=== PATIENT | female | born 1965 | race African-American/Black ===

== ENCOUNTER 2016-11-22 12:18 | Emergency (ER) | payer MEDICARE ==
[2016-11-22 13:16] LABS: APPEARANCE CLEAR (CLEAR); BILIRUBIN NEGATIVE (NEGATIVE); COLOR YELLOW (YELLOW); GLUCOSE NEGATIVE (NEGATIVE); KETONE NEGATIVE (NEGATIVE); LEUKOCYTE ESTERASE TRACE (NEGATIVE); NITRITE NEGATIVE (NEGATIVE); PROTEIN NEGATIVE (NEGATIVE); UROBILINOGEN NORMAL (NORMAL)
[2016-11-22 13:17] LABS: BACTERIA FEW /hpf (NONE SEEN); EPITHELIAL CELLS 0-5 /hpf (0-5); RED CELLS - URINE NONE SEEN /hpf (0-5); WHITE CELLS - URINE 0-5 /hpf (0-5); YEAST >1+ /hpf (NONE SEEN)
== END 2016-11-22 15:52 | disposition home or self-care (01) ==
LOC: D.ER 12:18
PROVIDERS: Emergency Medicine Emergency Medical Services
DX: Z20.2 Contact with and (suspected) exposure to infections with a predominantly sexual mode of transmission (principal); R10.2 Pelvic and perineal pain; I10 Essential (primary) hypertension; E87.6 Hypokalemia

== ENCOUNTER 2016-12-17 13:35 | Emergency (ER) | payer MEDICAID ==
[2016-12-17 17:56] LABS: APPEARANCE CLEAR (CLEAR); BILIRUBIN NEGATIVE (NEGATIVE); COLOR YELLOW (YELLOW); GLUCOSE NEGATIVE (NEGATIVE); KETONE NEGATIVE (NEGATIVE); LEUKOCYTE ESTERASE TRACE (NEGATIVE); NITRITE NEGATIVE (NEGATIVE); PROTEIN NEGATIVE (NEGATIVE); SPECIFIC GRAVITY 1.005 (1.005-1.020); UROBILINOGEN NORMAL (NORMAL)
[2016-12-17 17:57] LABS: BACTERIA FEW /hpf (NONE SEEN); EPITHELIAL CELLS 0-5 /hpf (0-5); RED CELLS - URINE 0-5 /hpf (0-5); WHITE CELLS - URINE 0-5 /hpf (0-5); YEAST <1+ /hpf (NONE SEEN)
== END 2016-12-17 18:15 | disposition home or self-care (01) ==
LOC: D.ER 13:35
PROVIDERS: Physician Assistant
DX: N76.0 Acute vaginitis (principal); N95.2 Postmenopausal atrophic vaginitis; Z72.51 High risk heterosexual behavior; J45.909 Unspecified asthma, uncomplicated; I10 Essential (primary) hypertension; E87.6 Hypokalemia

== ENCOUNTER 2016-12-30 14:36 | Emergency (ER) | payer SELFPAY ==
[2016-12-30 16:13] LABS: APPEARANCE CLEAR (CLEAR); BILIRUBIN NEGATIVE (NEGATIVE); COLOR YELLOW (YELLOW); GLUCOSE NEGATIVE (NEGATIVE); KETONE NEGATIVE (NEGATIVE); LEUKOCYTE ESTERASE TRACE (NEGATIVE); NITRITE NEGATIVE (NEGATIVE); PROTEIN NEGATIVE (NEGATIVE); UROBILINOGEN NORMAL (NORMAL)
[2016-12-30 16:18] LABS: BACTERIA FEW /hpf (NONE SEEN); EPITHELIAL CELLS 0-5 /hpf (0-5); RED CELLS - URINE NONE SEEN /hpf (0-5); WHITE CELLS - URINE 0-5 /hpf (0-5)
[2016-12-30 16:19] LABS: YEAST >1+ /hpf (NONE SEEN)
[2016-12-30 16:35] LABS: BASOPHILS 0.2 % (0.0-2.0); EOSINOPHILS 0.2 % (0-7); HEMATOCRIT 38.4 % (36.0-48.0); HEMOGLOBIN 12.9 g/dL (12-16); IMMATURE GRANULOCYTES 0.2 % (0-5); LYMPHOCYTES 29.6 % (15-50); MCH 30.3 pg (26.0-34.0); MCHC 33.6 g/dL (31.0-37.0); MCV 90.1 fL (80.0-100.0); MEAN PLATELET VOLUME 8.2 fL (7.4-10.4); MONOCYTES 8.5 % (2-11); NEUTROPHILS 61.3 % (40-80); PLATELET COUNT 248 10x3/uL (130-400); RBC 4.26 10x6/uL (4.00-5.40); RDW 12.5 % (11.5-14.5); WBC 4.1 10x3/uL (4.8-10.8)
[2017-01-02 22:11] LABS: CHLAMYDIA TRACHOMATIS, NAA Negative (Negative)
== END 2016-12-30 17:10 | disposition home or self-care (01) ==
LOC: D.ER 14:36
PROVIDERS: Physician Assistant Medical
DX: B37.9 Candidiasis, unspecified (principal); J45.909 Unspecified asthma, uncomplicated; I10 Essential (primary) hypertension; E87.6 Hypokalemia

== ENCOUNTER 2017-01-18 13:33 | Emergency (ER) | payer SELFPAY ==
[2017-01-18 14:19] LABS: BASOPHILS 0.4 % (0.0-2.0); EOSINOPHILS 0.6 % (0-7); HEMATOCRIT 40.9 % (36.0-48.0); HEMOGLOBIN 13.3 g/dL (12-16); IMMATURE GRANULOCYTES 0.2 % (0-5); LYMPHOCYTES 38.9 % (15-50); MCHC 32.5 g/dL (31.0-37.0); MCV 92.1 fL (80.0-100.0); MEAN PLATELET VOLUME 8.4 fL (7.4-10.4); NEUTROPHILS 49.9 % (40-80); RBC 4.44 10x6/uL (4.00-5.40); RDW 13.1 % (11.5-14.5); WBC 4.9 10x3/uL (4.8-10.8)
[2017-01-18 14:20] LABS: PLATELET COUNT 318 10x3/uL (130-400)
[2017-01-18 14:25] LABS: APPEARANCE CLEAR (CLEAR); BILIRUBIN NEGATIVE (NEGATIVE); COLOR YELLOW (YELLOW); GLUCOSE NEGATIVE (NEGATIVE); KETONE NEGATIVE (NEGATIVE); LEUKOCYTE ESTERASE NEGATIVE (NEGATIVE); NITRITE NEGATIVE (NEGATIVE); PROTEIN NEGATIVE (NEGATIVE); SPECIFIC GRAVITY 1.005 (1.005-1.020); UROBILINOGEN NORMAL (NORMAL)
[2017-01-18 14:32] LABS: ALBUMIN 3.9 g/dL (3.4-5.0); ALKALINE PHOSPHATASE 40 U/L (46-116); ALT (SGPT) 24 U/L (10-68); BILIRUBIN - TOTAL 0.26 mg/dL (0.2-1.3); CALC OSMOLALITY 284 mosm/kg (275-300); CALCIUM 8.6 mg/dL (8.5-10.1); CARBON DIOXIDE 30.9 mmol/L (21.0-32.0); CHLORIDE - SERUM 106 mmol/L (98-107); CREATININE - SERUM 0.8 mg/dL (0.6-1.3); GLUCOSE 94 mg/dL (74-106); POTASSIUM - SERUM 3.7 mmol/L (3.5-5.1); PROTEIN - SERUM 6.7 g/dL (6.4-8.2); SODIUM 144 mmol/L (136-145); UREA NITROGEN 7 mg/dL (7-18); eGFR NON AFRICAN AMERICAN 80 mL/min (90-120)
== END 2017-01-18 18:25 | disposition home or self-care (01) ==
LOC: D.ER 13:33
PROVIDERS: Emergency Medicine
DX: N76.0 Acute vaginitis (principal); R10.2 Pelvic and perineal pain; Z72.51 High risk heterosexual behavior; I10 Essential (primary) hypertension; E87.6 Hypokalemia

== ENCOUNTER 2017-01-29 13:56 | Emergency (ER) | payer SELFPAY ==
[2017-01-29 16:17] LABS: APPEARANCE CLEAR (CLEAR); BILIRUBIN NEGATIVE (NEGATIVE); COLOR YELLOW (YELLOW); GLUCOSE NEGATIVE (NEGATIVE); KETONE NEGATIVE (NEGATIVE); LEUKOCYTE ESTERASE NEGATIVE (NEGATIVE); NITRITE NEGATIVE (NEGATIVE); PROTEIN NEGATIVE (NEGATIVE); UROBILINOGEN NORMAL (NORMAL)
== END 2017-01-29 16:40 | disposition home or self-care (01) ==
LOC: D.ER 13:56
PROVIDERS: Nurse Practitioner Family
DX: N34.2 Other urethritis (principal); N89.8 Other specified noninflammatory disorders of vagina; J45.909 Unspecified asthma, uncomplicated; I10 Essential (primary) hypertension; E87.6 Hypokalemia

== ENCOUNTER 2017-02-08 20:35 | Emergency (ER) | payer MEDICARE | END 2017-02-09 00:18 | disposition home or self-care (01) | LOC: D.ER 20:35 | DX: N76.0 Acute vaginitis (principal); J45.909 Unspecified asthma, uncomplicated; I10 Essential (primary) hypertension; E87.6 Hypokalemia ==

== ENCOUNTER 2017-02-20 12:45 | Emergency (ER) | payer MEDICARE | END 2017-02-20 16:07 | disposition home or self-care (01) | LOC: D.ER 12:45 | DX: M54.5 Low back pain (principal); F17.200 Nicotine dependence, unspecified, uncomplicated ==

== ENCOUNTER 2017-03-02 12:13 | Emergency (ER) | payer MEDICARE | END 2017-03-02 15:03 | disposition home or self-care (01) | LOC: D.ER 12:13 | DX: J02.9 Acute pharyngitis, unspecified (principal); Z20.2 Contact with and (suspected) exposure to infections with a predominantly sexual mode of transmission; N76.0 Acute vaginitis; J45.909 Unspecified asthma, uncomplicated; I10 Essential (primary) hypertension; E87.6 Hypokalemia ==

== ENCOUNTER 2017-03-12 20:09 | Emergency (ER) | payer MEDICARE ==
[2017-03-12 21:10] LABS: BASOPHILS 0.3 % (0-2); EOSINOPHILS 0.9 % (0-7); HEMATOCRIT 43.7 % (36.0-48.0); HEMOGLOBIN 14.4 g/dL (12-16); IMMATURE GRANULOCYTES 0.2 % (0-5); LYMPHOCYTES 46.1 % (15-50); MCH 30.1 pg (26.0-34.0); MCV 91.2 fL (80.0-100.0); MEAN PLATELET VOLUME 8.3 fL (7.4-10.4); MONOCYTES 10.4 % (2-11); NEUTROPHILS 42.1 % (40-80); PLATELET COUNT 275 10x3/uL (130-400); RBC 4.79 10x6/uL (4.00-5.40); RDW 12.6 % (11.5-14.5); WBC 5.8 10x3/uL (4.8-10.8)
[2017-03-12 21:31] LABS: ALKALINE PHOSPHATASE 46 U/L (46-116); ALT (SGPT) 25 U/L (10-68); BILIRUBIN - TOTAL 0.33 mg/dL (0.2-1.3); CALC OSMOLALITY 277 mosm/kg (275-300); CALCIUM 8.7 mg/dL (8.5-10.1); CARBON DIOXIDE 30.8 mmol/L (21.0-32.0); CHLORIDE - SERUM 103 mmol/L (98-107); CREATININE - SERUM 0.8 mg/dL (0.6-1.3); GLUCOSE 92 mg/dL (74-106); POTASSIUM - SERUM 4.1 mmol/L (3.5-5.1); PROTEIN - SERUM 6.7 g/dL (6.4-8.2); SODIUM 140 mmol/L (136-145); UREA NITROGEN 9 mg/dL (7-18); eGFR NON AFRICAN AMERICAN 80 mL/min (90-120)
[2017-03-12 21:33] LABS: APPEARANCE CLEAR (CLEAR); BILIRUBIN NEGATIVE (NEGATIVE); COLOR YELLOW (YELLOW); GLUCOSE NEGATIVE (NEGATIVE); KETONE NEGATIVE (NEGATIVE); LEUKOCYTE ESTERASE NEGATIVE (NEGATIVE); NITRITE NEGATIVE (NEGATIVE); PROTEIN NEGATIVE (NEGATIVE); SPECIFIC GRAVITY 1.015 (1.005-1.020); UROBILINOGEN NORMAL (NORMAL)
[2017-03-16 03:09] LABS: CHLAMYDIA TRACHOMATIS, NAA Negative (Negative)
== END 2017-03-13 00:23 | disposition home or self-care (01) ==
LOC: D.ER 20:09
PROVIDERS: Emergency Medicine Emergency Medical Services
DX: R10.2 Pelvic and perineal pain (principal); J45.909 Unspecified asthma, uncomplicated; I10 Essential (primary) hypertension; E87.6 Hypokalemia

== ENCOUNTER 2017-03-17 18:43 | Emergency (ER) | payer MEDICARE ==
[2017-03-17 19:24] LABS: APPEARANCE CLEAR (CLEAR); BILIRUBIN NEGATIVE (NEGATIVE); COLOR YELLOW (YELLOW); GLUCOSE NEGATIVE (NEGATIVE); KETONE NEGATIVE (NEGATIVE); LEUKOCYTE ESTERASE TRACE (NEGATIVE); NITRITE NEGATIVE (NEGATIVE); PROTEIN NEGATIVE (NEGATIVE); SPECIFIC GRAVITY 1.015 (1.005-1.020); UROBILINOGEN NORMAL (NORMAL)
[2017-03-17 19:25] LABS: BACTERIA FEW /hpf (NONE SEEN); EPITHELIAL CELLS 0-5 /hpf (0-5); MUCUS <1+ /lpf (NONE SEEN); RED CELLS - URINE NONE SEEN /hpf (0-5); WHITE CELLS - URINE 0-5 /hpf (0-5)
== END 2017-03-17 20:56 | disposition home or self-care (01) ==
LOC: D.ER 18:43
PROVIDERS: Emergency Medicine
DX: R42 Dizziness and giddiness (principal); J45.909 Unspecified asthma, uncomplicated; I10 Essential (primary) hypertension; E87.6 Hypokalemia

== ENCOUNTER 2018-01-27 13:45 | Emergency (ER) | payer MEDICARE | END 2018-01-27 15:12 | disposition home or self-care (01) | LOC: D.ER 13:45 | DX: J02.9 Acute pharyngitis, unspecified (principal); J06.9 Acute upper respiratory infection, unspecified ==

== ENCOUNTER 2018-04-07 10:23 | Emergency (ER) | payer MEDICARE ==
[2018-04-07 10:47] LABS: BASOPHILS 0.5 % (0-2); HEMATOCRIT 40.2 % (36.0-48.0); HEMOGLOBIN 13.7 g/dL (12-16); LYMPHOCYTES 41.5 % (15-50); MCH 30.9 pg (26.0-34.0); MCHC 34.1 g/dL (31.0-37.0); MCV 90.7 fL (80.0-100.0); MONOCYTES 11.1 % (2-11); NEUTROPHILS 45.9 % (40-80); PLATELET COUNT 269 10x3/uL (130-400); RBC 4.43 10x6/uL (4.00-5.40); RDW 12.5 % (11.5-14.5); WBC 3.9 10x3/uL (4.8-10.8)
[2018-04-07 10:59] LABS: APPEARANCE HAZY (CLEAR); BILIRUBIN NEGATIVE (NEGATIVE); COLOR YELLOW (YELLOW); GLUCOSE NEGATIVE (NEGATIVE); KETONE NEGATIVE (NEGATIVE); NITRITE NEGATIVE (NEGATIVE); PROTEIN NEGATIVE (NEGATIVE); SPECIFIC GRAVITY 1.015 (1.005-1.020); UROBILINOGEN NORMAL (NORMAL)
[2018-04-07 11:00] LABS: EPITHELIAL CELLS 0-5 /hpf (0-5); RED CELLS - URINE NONE SEEN /hpf (0-5); WHITE CELLS - URINE 0-5 /hpf (0-5)
[2018-04-07 11:01] LABS: BACTERIA MODERATE /hpf (NONE SEEN); YEAST <1+ /hpf (NONE SEEN)
[2018-04-07 11:09] LABS: ALBUMIN 3.8 g/dL (3.4-5.0); ALKALINE PHOSPHATASE 38 U/L (46-116); ALT (SGPT) 21 U/L (10-68); AMYLASE - SERUM 83 U/L (25-115); BILIRUBIN - TOTAL 0.39 mg/dL (0.2-1.3); CALC OSMOLALITY 276 mosm/kg (275-300); CALCIUM 8.6 mg/dL (8.5-10.1); CARBON DIOXIDE 27.7 mmol/L (21.0-32.0); CHLORIDE - SERUM 104 mmol/L (98-107); CREATININE - SERUM 0.8 mg/dL (0.6-1.3); GLUCOSE 99 mg/dL (74-106); LIPASE 260 U/L (73-393); POTASSIUM - SERUM 3.7 mmol/L (3.5-5.1); PROTEIN - SERUM 6.7 g/dL (6.4-8.2); SODIUM 140 mmol/L (136-145); UREA NITROGEN 7 mg/dL (7-18); eGFR NON AFRICAN AMERICAN 80 mL/min (90-120)
[2018-04-10 07:32] LABS: CHLAMYDIA TRACHOMATIS, NAA Negative (Negative)
== END 2018-04-07 12:17 | disposition home or self-care (01) ==
LOC: D.ER 10:23
PROVIDERS: Family Medicine
DX: A64 Unspecified sexually transmitted disease (principal); R10.2 Pelvic and perineal pain; F17.200 Nicotine dependence, unspecified, uncomplicated

== ENCOUNTER 2018-06-24 19:41 | Emergency (ER) | payer MEDICARE ==
[~2018-06-24] VITALS: Ht 167.6 cm; Wt 69.5 kg
[2018-06-24 20:03] VITALS: Ht 167.6 cm; Wt 69.5 kg
[2018-06-24] MEDS ORDERED: PRINIVIL10 MG PO (20:04)
[2018-06-24 20:55] LABS: APPEARANCE CLEAR (CLEAR); BILIRUBIN NEGATIVE (NEGATIVE); COLOR YELLOW (YELLOW); GLUCOSE NEGATIVE (NEGATIVE); KETONE NEGATIVE (NEGATIVE); NITRITE NEGATIVE (NEGATIVE); PROTEIN NEGATIVE (NEGATIVE); SPECIFIC GRAVITY 1.025 (1.005-1.020); UROBILINOGEN NORMAL (NORMAL)
[2018-06-24] MEDS ORDERED: TORADOL10 MG PO (21:23)
[2018-06-24 21:27] VITALS: BP 117/74
== END 2018-06-24 21:28 | disposition home or self-care (01) ==
LOC: D.ER 19:41
PROVIDERS: Family Medicine
DX: M54.5 Low back pain (principal); M25.552 Pain in left hip; R30.0 Dysuria

== ENCOUNTER 2018-07-20 10:26 | Emergency (ER) | payer MEDICARE ==
[~2018-07-20] VITALS: Ht 167.6 cm; Wt 68.2 kg
[~2018-07-20 10:26] MED LIST: PRINIVIL10 MG PO; TORADOL10 MG PO
[2018-07-20 10:41] VITALS: Ht 167.6 cm; Wt 68.2 kg
[2018-07-20 12:50] LABS: APPEARANCE CLEAR (CLEAR); COLOR YELLOW (YELLOW); GLUCOSE NEGATIVE (NEGATIVE); KETONE NEGATIVE (NEGATIVE); NITRITE NEGATIVE (NEGATIVE); PROTEIN NEGATIVE (NEGATIVE); SPECIFIC GRAVITY 1.015 (1.005-1.020); UROBILINOGEN NORMAL (NORMAL)
[2018-07-20 12:51] LABS: BILIRUBIN NEGATIVE (NEGATIVE)
[2018-07-20 12:54] VITALS: BP 146/73
[2018-07-20 12:54] LABS: BACTERIA FEW /hpf (NONE SEEN); EPITHELIAL CELLS 0-5 /hpf (0-5); RED CELLS - URINE 0-5 /hpf (0-5); WHITE CELLS - URINE 0-5 /hpf (0-5)
[2018-07-25 22:15] LABS: CHLAMYDIA TRACHOMATIS, NAA Negative (Negative)
== END 2018-07-20 12:55 | disposition home or self-care (01) ==
LOC: D.ER 10:26
PROVIDERS: Family Medicine
DX: N89.8 Other specified noninflammatory disorders of vagina (principal); Z72.51 High risk heterosexual behavior; R51 Headache; J02.9 Acute pharyngitis, unspecified; I10 Essential (primary) hypertension

== ENCOUNTER 2019-01-11 15:18 | Emergency (ER) | payer MEDICARE ==
[~2019-01-11] VITALS: Ht 167.6 cm; Wt 71.8 kg
[2019-01-11 15:29] VITALS: Ht 167.6 cm; Wt 71.8 kg
[2019-01-11 16:41] LABS: BASOPHILS 0.6 % (0-2); HEMATOCRIT 40.7 % (36.0-48.0); HEMOGLOBIN 13.8 g/dL (12-16); LYMPHOCYTES 50.5 % (15-50); MCH 30.3 pg (26.0-34.0); MCHC 33.9 g/dL (31.0-37.0); MCV 89.3 fL (80.0-100.0); MEAN PLATELET VOLUME 8.2 fL (7.4-10.4); MONOCYTES 11.7 % (2-11); NEUTROPHILS 36.2 % (40-80); PLATELET COUNT 244 10x3/uL (130-400); RBC 4.56 10x6/uL (4.00-5.40); RDW 12.9 % (11.5-14.5); WBC 3.1 10x3/uL (4.8-10.8)
[2019-01-11 16:53] LABS: APPEARANCE CLEAR (CLEAR); BILIRUBIN NEGATIVE (NEGATIVE); COLOR YELLOW (YELLOW); GLUCOSE NEGATIVE (NEGATIVE); KETONE MODERATE mg/dL (NEGATIVE); NITRITE NEGATIVE (NEGATIVE); PROTEIN NEGATIVE (NEGATIVE); SPECIFIC GRAVITY 1.015 (1.005-1.020); UROBILINOGEN NORMAL (NORMAL)
[2019-01-11 17:06] LABS: ALBUMIN 3.6 g/dL (3.4-5.0); ALKALINE PHOSPHATASE 45 U/L (46-116); ALT (SGPT) 34 U/L (10-68); CALC OSMOLALITY 282 mosm/kg (275-300); CALCIUM 8.1 mg/dL (8.5-10.1); CARBON DIOXIDE 30.3 mmol/L (21.0-32.0); CHLORIDE - SERUM 104 mmol/L (98-107); CREATININE - SERUM 0.7 mg/dL (0.6-1.3); GLUCOSE 125 mg/dL (74-106); POTASSIUM - SERUM 3.3 mmol/L (3.5-5.1); PROTEIN - SERUM 6.5 g/dL (6.4-8.2); SODIUM 142 mmol/L (136-145); UREA NITROGEN 9 mg/dL (7-18); eGFR NON AFRICAN AMERICAN > 90 mL/min (90-120)
[2019-01-11] MEDS ORDERED: VOLTAREN75 MG PO (18:53)
[2019-01-11] MEDS ORDERED: PHENERGAN DM SYR5 ML PO (18:53)
[2019-01-11 19:44] VITALS: BP 138/96
== END 2019-01-11 19:44 | disposition home or self-care (01) ==
LOC: D.ER 15:18
PROVIDERS: Family Medicine
DX: J06.9 Acute upper respiratory infection, unspecified (principal); R09.89 Other specified symptoms and signs involving the circulatory and respiratory systems; R50.9 Fever, unspecified; I10 Essential (primary) hypertension

== ENCOUNTER 2019-01-27 13:46 | Emergency (ER) | payer MEDICARE ==
[~2019-01-27] VITALS: Ht 167.6 cm; Wt 70.5 kg
[~2019-01-27 13:46] MED LIST changes: +PHENERGAN DM SYR5 ML PO; +VOLTAREN75 MG PO
[2019-01-27 14:14] VITALS: Ht 167.6 cm; Wt 70.5 kg
[2019-01-27 18:43] LABS: BASOPHILS 0.4 % (0-2); EOSINOPHILS 1.1 % (0-7); HEMATOCRIT 39.1 % (36.0-48.0); HEMOGLOBIN 13.2 g/dL (12-16); IMMATURE GRANULOCYTES 0.2 % (0-5); LYMPHOCYTES 31.3 % (15-50); MCH 30.3 pg (26.0-34.0); MCHC 33.8 g/dL (31.0-37.0); MCV 89.7 fL (80.0-100.0); MEAN PLATELET VOLUME 8.1 fL (7.4-10.4); MONOCYTES 10.6 % (2-11); NEUTROPHILS 56.4 % (40-80); RBC 4.36 10x6/uL (4.00-5.40); RDW 13.1 % (11.5-14.5); WBC 5.7 10x3/uL (4.8-10.8)
[2019-01-27 19:02] LABS: ALBUMIN 3.7 g/dL (3.4-5.0); ALKALINE PHOSPHATASE 43 U/L (46-116); ALT (SGPT) 34 U/L (10-68); BILIRUBIN - TOTAL 0.26 mg/dL (0.2-1.3); CALC OSMOLALITY 278 mosm/kg (275-300); CALCIUM 8.4 mg/dL (8.5-10.1); CHLORIDE - SERUM 105 mmol/L (98-107); CREATININE - SERUM 0.6 mg/dL (0.6-1.3); GLUCOSE 92 mg/dL (74-106); PROTEIN - SERUM 6.6 g/dL (6.4-8.2); SODIUM 141 mmol/L (136-145); UREA NITROGEN 6 mg/dL (7-18); eGFR NON AFRICAN AMERICAN > 90 mL/min (90-120)
[2019-01-27 19:08] LABS: APPEARANCE CLEAR (CLEAR); COLOR YELLOW (YELLOW)
[2019-01-27 19:09] LABS: BILIRUBIN NEGATIVE (NEGATIVE); GLUCOSE NEGATIVE (NEGATIVE); KETONE NEGATIVE (NEGATIVE); NITRITE NEGATIVE (NEGATIVE); PROTEIN NEGATIVE (NEGATIVE); UROBILINOGEN NORMAL (NORMAL)
[2019-01-27 19:10] LABS: POTASSIUM - SERUM 2.9 mmol/L (3.5-5.1)
[2019-01-27 19:11] LABS: PLATELET COUNT 346 10x3/uL (130-400)
[2019-01-27 20:22] VITALS: BP 126/79
[2019-01-29 07:31] LABS: RAPID PLASMA REAGIN Non Reactive (Non Reactive)
[2019-01-30 22:07] LABS: CHLAMYDIA TRACHOMATIS, NAA Negative (Negative)
== END 2019-01-28 02:48 | disposition home or self-care (01) ==
LOC: D.ER 13:46
PROVIDERS: Family Medicine
DX: A51.0 Primary genital syphilis (principal)

== ENCOUNTER 2019-02-10 10:57 | Emergency (ER) | payer MEDICARE ==
[~2019-02-10] VITALS: Ht 167.6 cm; Wt 70.5 kg
[2019-02-10 11:12] VITALS: BP 119/89; Ht 167.6 cm; Wt 70.5 kg
[2019-02-10 11:50] LABS: BASOPHILS 0.5 % (0-2); EOSINOPHILS 0.9 % (0-7); HEMATOCRIT 40.5 % (36.0-48.0); HEMOGLOBIN 13.7 g/dL (12-16); LYMPHOCYTES 34.7 % (15-50); MCH 30.2 pg (26.0-34.0); MCHC 33.8 g/dL (31.0-37.0); MCV 89.2 fL (80.0-100.0); MONOCYTES 11.6 % (2-11); NEUTROPHILS 52.3 % (40-80); PLATELET COUNT 283 10x3/uL (130-400); RBC 4.54 10x6/uL (4.00-5.40); RDW 12.7 % (11.5-14.5); WBC 4.2 10x3/uL (4.8-10.8)
[2019-02-10 12:06] LABS: ALBUMIN 3.8 g/dL (3.4-5.0); ALKALINE PHOSPHATASE 44 U/L (46-116); ALT (SGPT) 23 U/L (10-68); BILIRUBIN - TOTAL 0.35 mg/dL (0.2-1.3); CALC OSMOLALITY 281 mosm/kg (275-300); CALCIUM 8.6 mg/dL (8.5-10.1); CARBON DIOXIDE 27.9 mmol/L (21.0-32.0); CHLORIDE - SERUM 105 mmol/L (98-107); CREATININE - SERUM 0.7 mg/dL (0.6-1.3); GLUCOSE 100 mg/dL (74-106); POTASSIUM - SERUM 3.5 mmol/L (3.5-5.1); PROTEIN - SERUM 6.9 g/dL (6.4-8.2); SODIUM 143 mmol/L (136-145); UREA NITROGEN 4 mg/dL (7-18); eGFR NON AFRICAN AMERICAN > 90 mL/min (90-120)
[2019-02-10 12:15] LABS: CKMB 0.6 U/L (0.0-3.6); CREATINE KINASE 61 UL (21-215); TROPONIN-I < 0.017 ng/mL (0.000-0.060)
[2019-02-10] MEDS ORDERED: EC-NAPROSYN500 MG PO (13:14)
[2019-02-10] MEDS ORDERED: FLUTICASONE PRO16 GM NASAL (13:14)
[2019-02-10] MEDS ORDERED: AUGMENTIN 875-11 TAB PO (13:14)
== END 2019-02-10 13:35 | disposition home or self-care (01) ==
LOC: D.ER 10:57
PROVIDERS: Family Medicine
DX: J01.90 Acute sinusitis, unspecified (principal); M94.0 Chondrocostal junction syndrome [Tietze]; M79.18 Myalgia, other site; R05 Cough

== ENCOUNTER 2019-03-16 10:52 | Emergency (ER) | payer MEDICARE ==
[~2019-03-16] VITALS: Ht 167.6 cm; Wt 70.5 kg
[~2019-03-16 10:52] MED LIST changes: +AUGMENTIN 875-11 TAB PO; +EC-NAPROSYN500 MG PO; +FLUTICASONE PRO16 GM NASAL
[2019-03-16 11:04] VITALS: Ht 167.6 cm; Wt 70.5 kg
[2019-03-16 11:52] LABS: APPEARANCE CLEAR (CLEAR); COLOR STRAW (YELLOW); GLUCOSE NEGATIVE (NEGATIVE); KETONE NEGATIVE (NEGATIVE); NITRITE NEGATIVE (NEGATIVE); PROTEIN NEGATIVE (NEGATIVE); SPECIFIC GRAVITY 1.015 (1.005-1.020); UROBILINOGEN NORMAL (NORMAL)
[2019-03-16 11:53] LABS: BILIRUBIN NEGATIVE (NEGATIVE)
[2019-03-16] MEDS ORDERED: FLAGYL500 MG PO (12:07)
[2019-03-16 12:24] VITALS: BP 132/76
== END 2019-03-16 12:25 | disposition home or self-care (01) ==
LOC: D.ER 10:52
PROVIDERS: Family Medicine
DX: N89.8 Other specified noninflammatory disorders of vagina (principal)

== ENCOUNTER 2019-04-04 15:49 | Emergency (ER) | payer MEDICARE ==
[~2019-04-04] VITALS: Ht 167.6 cm; Wt 66.8 kg
[~2019-04-04 15:49] MED LIST changes: +FLAGYL500 MG PO
[2019-04-04 15:59] VITALS: Ht 167.6 cm; Wt 66.8 kg
[2019-04-04 16:29] LABS: BASOPHILS 0.5 % (0-2); HEMATOCRIT 39.6 % (36.0-48.0); HEMOGLOBIN 13.2 g/dL (12-16); IMMATURE GRANULOCYTES 0.5 % (0-5); LYMPHOCYTES 33.3 % (15-50); MCH 29.7 pg (26.0-34.0); MCHC 33.3 g/dL (31.0-37.0); MCV 89.2 fL (80.0-100.0); MEAN PLATELET VOLUME 8.4 fL (7.4-10.4); MONOCYTES 8.5 % (2-11); NEUTROPHILS 56.2 % (40-80); PLATELET COUNT 279 10x3/uL (130-400); RBC 4.44 10x6/uL (4.00-5.40); RDW 12.8 % (11.5-14.5)
[2019-04-04 16:45] LABS: ALBUMIN 3.8 g/dL (3.4-5.0); ALKALINE PHOSPHATASE 43 U/L (46-116); ALT (SGPT) 26 U/L (10-68); BILIRUBIN - TOTAL 0.31 mg/dL (0.2-1.3); CALC OSMOLALITY 285 mosm/kg (275-300); CALCIUM 8.6 mg/dL (8.5-10.1); CARBON DIOXIDE 27.9 mmol/L (21.0-32.0); CHLORIDE - SERUM 107 mmol/L (98-107); CREATININE - SERUM 0.8 mg/dL (0.6-1.3); GLUCOSE 108 mg/dL (74-106); POTASSIUM - SERUM 3.1 mmol/L (3.5-5.1); PROTEIN - SERUM 6.8 g/dL (6.4-8.2); SODIUM 144 mmol/L (136-145); UREA NITROGEN 8 mg/dL (7-18); eGFR NON AFRICAN AMERICAN 79 mL/min (90-120)
[2019-04-04 16:48] LABS: AMYLASE - SERUM 60 U/L (25-115); LIPASE 228 U/L (73-393)
[2019-04-04 16:56] LABS: APPEARANCE CLEAR (CLEAR); BILIRUBIN NEGATIVE (NEGATIVE); COLOR YELLOW (YELLOW); GLUCOSE NEGATIVE (NEGATIVE); KETONE NEGATIVE (NEGATIVE); NITRITE NEGATIVE (NEGATIVE); PROTEIN NEGATIVE (NEGATIVE); SPECIFIC GRAVITY 1.025 (1.005-1.020); TROPONIN-I < 0.017 ng/mL (0.000-0.060); UROBILINOGEN NORMAL (NORMAL)
[2019-04-04 19:55] VITALS: BP 121/76
== END 2019-04-04 19:55 | disposition home or self-care (01) ==
LOC: D.ER 15:49
PROVIDERS: Emergency Medicine
DX: E86.0 Dehydration (principal); R10.2 Pelvic and perineal pain; T23.021S Burn of unspecified degree of single right finger (nail) except thumb, sequela; E87.6 Hypokalemia; R11.0 Nausea

== ENCOUNTER 2019-04-28 12:05 | Emergency (ER) | payer MEDICARE ==
[2019-04-28 12:16] VITALS: BP 126/87; BMI 21.0
[2019-04-28 13:13] LABS: APPEARANCE CLEAR (CLEAR); BILIRUBIN NEGATIVE (NEGATIVE); COLOR YELLOW (YELLOW); GLUCOSE NEGATIVE (NEGATIVE); KETONE NEGATIVE (NEGATIVE); NITRITE NEGATIVE (NEGATIVE); PROTEIN NEGATIVE (NEGATIVE); SPECIFIC GRAVITY 1.015 (1.005-1.020); UROBILINOGEN NORMAL (NORMAL)
== END 2019-04-28 14:30 | disposition left against medical advice (07) ==
LOC: D.ER 12:05
PROVIDERS: Emergency Medicine
DX: R42 Dizziness and giddiness (principal)

== ENCOUNTER 2019-06-29 10:44 | Emergency (ER) | payer MEDICARE ==
[~2019-06-29] VITALS: Ht 167.6 cm; Wt 68.2 kg
[2019-06-29 10:50] VITALS: BP 114/75; Ht 167.6 cm; Wt 68.2 kg
[2019-06-29 12:26] LABS: APPEARANCE CLEAR (CLEAR); BILIRUBIN NEGATIVE (NEGATIVE); COLOR STRAW (YELLOW); GLUCOSE NEGATIVE (NEGATIVE); KETONE NEGATIVE (NEGATIVE); NITRITE NEGATIVE (NEGATIVE); PROTEIN NEGATIVE (NEGATIVE); SPECIFIC GRAVITY 1.015 (1.005-1.020); UROBILINOGEN NORMAL (NORMAL)
[2019-06-29] MEDS ORDERED: FLAGYL500 MG PO (13:24)
== END 2019-06-29 13:33 | disposition home or self-care (01) ==
LOC: D.ER 10:44
PROVIDERS: Emergency Medicine
DX: Z20.2 Contact with and (suspected) exposure to infections with a predominantly sexual mode of transmission (principal)

== ENCOUNTER 2019-07-31 15:36 | Emergency (ER) | payer MEDICARE ==
[~2019-07-31] VITALS: Ht 167.6 cm; Wt 70.5 kg
[2019-07-31 15:47] VITALS: Ht 167.6 cm; Wt 70.5 kg
[2019-07-31 16:09] LABS: BASOPHILS 0.5 % (0-2); EOSINOPHILS 1.6 % (0-7); HEMATOCRIT 37.9 % (36.0-48.0); HEMOGLOBIN 12.9 g/dL (12-16); IMMATURE GRANULOCYTES 0.3 % (0-5); LYMPHOCYTES 37.4 % (15-50); MCH 29.6 pg (26.0-34.0); MCV 86.9 fL (80.0-100.0); MONOCYTES 8.6 % (2-11); NEUTROPHILS 51.6 % (40-80); PLATELET COUNT 236 10x3/uL (130-400); RBC 4.36 10x6/uL (4.00-5.40); RDW 12.7 % (11.5-14.5); WBC 3.8 10x3/uL (4.8-10.8)
[2019-07-31 16:25] LABS: APPEARANCE CLEAR (CLEAR); BILIRUBIN NEGATIVE (NEGATIVE); COLOR YELLOW (YELLOW); GLUCOSE NEGATIVE (NEGATIVE); KETONE NEGATIVE (NEGATIVE); NITRITE NEGATIVE (NEGATIVE); PROTEIN NEGATIVE (NEGATIVE); UROBILINOGEN NORMAL (NORMAL)
[2019-07-31 16:29] LABS: BACTERIA FEW /hpf (NONE SEEN); EPITHELIAL CELLS 0-5 /hpf (0-5); MUCUS <1+ /lpf (NONE SEEN); RED CELLS - URINE 0-5 /hpf (0-5); WHITE CELLS - URINE 0-5 /hpf (0-5)
[2019-07-31 16:32] LABS: ALBUMIN 3.6 g/dL (3.4-5.0); ALKALINE PHOSPHATASE 43 U/L (46-116); ALT (SGPT) 19 U/L (10-68); CALC OSMOLALITY 280 mosm/kg (275-300); CALCIUM 8.2 mg/dL (8.5-10.1); CARBON DIOXIDE 29.4 mmol/L (21.0-32.0); CHLORIDE - SERUM 107 mmol/L (98-107); CREATININE - SERUM 0.9 mg/dL (0.6-1.3); GLUCOSE 101 mg/dL (74-106); POTASSIUM - SERUM 3.2 mmol/L (3.5-5.1); PROTEIN - SERUM 6.5 g/dL (6.4-8.2); SODIUM 142 mmol/L (136-145); UREA NITROGEN 6 mg/dL (7-18); eGFR NON AFRICAN AMERICAN 69 mL/min (90-120)
[2019-07-31 16:35] LABS: AMYLASE - SERUM 67 U/L (25-115); LIPASE 356 U/L (73-393); TROPONIN-I < 0.017 ng/mL (0.000-0.060)
[2019-07-31 19:14] VITALS: BP 145/85
[2019-08-01 08:11] LABS: RAPID PLASMA REAGIN Non Reactive (Non Reactive)
[2019-08-05 21:06] LABS: CHLAMYDIA TRACHOMATIS, NAA Negative (Negative)
== END 2019-07-31 19:10 | disposition home or self-care (01) ==
LOC: D.ER 15:36
PROVIDERS: Family Medicine
DX: Z20.828 Contact with and (suspected) exposure to other viral communicable diseases (principal); R11.2 Nausea with vomiting, unspecified

== ENCOUNTER 2019-08-29 11:31 | Emergency (ER) | payer MEDICARE ==
[~2019-08-29] VITALS: Ht 167.6 cm; Wt 70.0 kg
[2019-08-29 11:37] VITALS: Ht 167.6 cm; Wt 70.0 kg
[2019-08-29 11:55] LABS: BASOPHILS 0.4 % (0-2); EOSINOPHILS 1.2 % (0-7); HEMATOCRIT 43.2 % (36.0-48.0); HEMOGLOBIN 14.6 g/dL (12-16); IMMATURE GRANULOCYTES 0.2 % (0-5); LYMPHOCYTES 35.4 % (15-50); MCH 30.4 pg (26.0-34.0); MCHC 33.8 g/dL (31.0-37.0); MEAN PLATELET VOLUME 8.2 fL (7.4-10.4); MONOCYTES 14.1 % (2-11); NEUTROPHILS 48.7 % (40-80); RDW 12.9 % (11.5-14.5); WBC 5.1 10x3/uL (4.8-10.8)
[2019-08-29 11:59] LABS: PLATELET COUNT 324 10x3/uL (130-400)
[2019-08-29 12:12] LABS: APPEARANCE CLEAR (CLEAR); BILIRUBIN NEGATIVE (NEGATIVE); COLOR STRAW (YELLOW); GLUCOSE NEGATIVE (NEGATIVE); KETONE NEGATIVE (NEGATIVE); NITRITE NEGATIVE (NEGATIVE); PROTEIN NEGATIVE (NEGATIVE); SPECIFIC GRAVITY 1.005 (1.005-1.020); UROBILINOGEN NORMAL (NORMAL)
[2019-08-29 12:54] LABS: ALBUMIN 3.9 g/dL (3.4-5.0); ALKALINE PHOSPHATASE 49 U/L (46-116); ALT (SGPT) 18 U/L (10-68); BILIRUBIN - TOTAL 0.34 mg/dL (0.2-1.3); CALC OSMOLALITY 277 mosm/kg (275-300); CALCIUM 8.8 mg/dL (8.5-10.1); CARBON DIOXIDE 29.7 mmol/L (21.0-32.0); CHLORIDE - SERUM 103 mmol/L (98-107); CREATININE - SERUM 0.6 mg/dL (0.6-1.3); GLUCOSE 81 mg/dL (74-106); POTASSIUM - SERUM 3.9 mmol/L (3.5-5.1); PROTEIN - SERUM 6.8 g/dL (6.4-8.2); SODIUM 141 mmol/L (136-145); UREA NITROGEN 6 mg/dL (7-18); eGFR NON AFRICAN AMERICAN > 90 mL/min (90-120)
[2019-08-29 13:05] LABS: CKMB 0.7 U/L (0.0-3.6); CREATINE KINASE 52 UL (21-215); TROPONIN-I < 0.017 ng/mL (0.000-0.060)
[2019-08-29 14:14] VITALS: BP 114/82
== END 2019-08-29 14:25 | disposition home or self-care (01) ==
LOC: D.ER 11:31
PROVIDERS: Family Medicine
DX: K61.1 Rectal abscess (principal)

== ENCOUNTER 2019-10-05 12:56 | Emergency (ER) | payer MEDICARE ==
[~2019-10-05] VITALS: Ht 167.6 cm; Wt 72.7 kg
[2019-10-05 13:00] VITALS: Ht 167.6 cm; Wt 72.7 kg
[2019-10-05 13:17] LABS: APPEARANCE CLEAR (CLEAR); BILIRUBIN NEGATIVE (NEGATIVE); COLOR YELLOW (YELLOW); GLUCOSE NEGATIVE (NEGATIVE); KETONE NEGATIVE (NEGATIVE); NITRITE NEGATIVE (NEGATIVE); PROTEIN NEGATIVE (NEGATIVE); UROBILINOGEN NORMAL (NORMAL)
[2019-10-05] MEDS ORDERED: ANUSOL-HC25 MG RC (13:49)
[2019-10-05] MEDS ORDERED: PREPARATION H O57 GM TOPICAL (13:51)
[2019-10-05 14:35] VITALS: BP 146/83
== END 2019-10-05 14:36 | disposition home or self-care (01) ==
LOC: D.ER 12:56
PROVIDERS: Family Medicine
DX: K64.5 Perianal venous thrombosis (principal); R10.30 Lower abdominal pain, unspecified; R20.8 Other disturbances of skin sensation; Z20.2 Contact with and (suspected) exposure to infections with a predominantly sexual mode of transmission; I10 Essential (primary) hypertension

== ENCOUNTER 2019-10-26 12:28 | Emergency (ER) | payer MEDICARE ==
[~2019-10-26] VITALS: Ht 167.6 cm; Wt 63.6 kg
[~2019-10-26 12:28] MED LIST changes: +ANUSOL-HC25 MG RC; +PREPARATION H O57 GM TOPICAL
[2019-10-26 12:45] VITALS: BP 145/73; Ht 167.6 cm; Wt 63.6 kg
[2019-10-26 13:15] LABS: APPEARANCE CLEAR (CLEAR); BILIRUBIN NEGATIVE (NEGATIVE); COLOR YELLOW (YELLOW); GLUCOSE NEGATIVE (NEGATIVE); KETONE NEGATIVE (NEGATIVE); NITRITE NEGATIVE (NEGATIVE); PROTEIN NEGATIVE (NEGATIVE); UROBILINOGEN NORMAL (NORMAL)
== END 2019-10-26 14:55 | disposition left against medical advice (07) ==
LOC: D.ER 12:28
PROVIDERS: Emergency Medicine
DX: R10.2 Pelvic and perineal pain (principal); I10 Essential (primary) hypertension; M54.2 Cervicalgia

== ENCOUNTER 2019-11-01 11:38 | Emergency (ER) | payer MEDICARE ==
[~2019-11-01] VITALS: Ht 167.6 cm; Wt 65.9 kg
[2019-11-01 11:45] VITALS: Ht 167.6 cm; Wt 65.9 kg
[2019-11-01 12:08] LABS: APPEARANCE CLEAR (CLEAR); COLOR YELLOW (YELLOW)
[2019-11-01 12:09] LABS: BILIRUBIN NEGATIVE (NEGATIVE); GLUCOSE NEGATIVE (NEGATIVE); KETONE NEGATIVE (NEGATIVE); NITRITE NEGATIVE (NEGATIVE); PROTEIN NEGATIVE (NEGATIVE); UROBILINOGEN NORMAL (NORMAL)
[2019-11-01] MEDS ORDERED: FLAGYL500 MG PO (13:16)
[2019-11-01 13:30] VITALS: BP 132/66
== END 2019-11-01 13:31 | disposition home or self-care (01) ==
LOC: D.ER 11:38
PROVIDERS: Family Medicine
DX: R10.30 Lower abdominal pain, unspecified (principal); R11.0 Nausea; Z20.2 Contact with and (suspected) exposure to infections with a predominantly sexual mode of transmission; Z20.89 Contact with and (suspected) exposure to other communicable diseases; I10 Essential (primary) hypertension

== ENCOUNTER 2019-12-12 15:56 | Emergency (ER) | payer MEDICARE ==
[~2019-12-12] VITALS: Ht 167.6 cm; Wt 70.0 kg
[2019-12-12 16:00] VITALS: Ht 167.6 cm; Wt 70.0 kg
[2019-12-12 18:07] LABS: BASOPHILS 0 % (0-2); EOSINOPHILS 0.1 % (0-7); HEMATOCRIT 39.4 % (36.0-48.0); HEMOGLOBIN 13.3 g/dL (12-16); IMMATURE GRANULOCYTES 0.1 % (0-5); LYMPHOCYTES 20.2 % (15-50); MCH 30.6 pg (26.0-34.0); MCHC 33.8 g/dL (31.0-37.0); MCV 90.6 fL (80.0-100.0); MEAN PLATELET VOLUME 7.8 fL (7.4-10.4); NEUTROPHILS 71.6 % (40-80); PLATELET COUNT 317 10x3/uL (130-400); RBC 4.35 10x6/uL (4.00-5.40); RDW 13.2 % (11.5-14.5); WBC 6.9 10x3/uL (4.8-10.8)
[2019-12-12 18:19] LABS: CALC OSMOLALITY 280 mosm/kg (275-300); CALCIUM 8.6 mg/dL (8.5-10.1); CHLORIDE - SERUM 106 mmol/L (98-107); CREATININE - SERUM 0.8 mg/dL (0.6-1.3); GLUCOSE 95 mg/dL (74-106); POTASSIUM - SERUM 3.6 mmol/L (3.5-5.1); SODIUM 142 mmol/L (136-145); UREA NITROGEN 8 mg/dL (7-18); eGFR NON AFRICAN AMERICAN 79 mL/min (90-120)
[2019-12-12 18:26] LABS: ALBUMIN 3.5 g/dL (3.4-5.0); ALKALINE PHOSPHATASE 44 U/L (30-120); ALT (SGPT) 19 U/L (10-68); BILIRUBIN - TOTAL 0.34 mg/dL (0.2-1.3); PROTEIN - SERUM 6.7 g/dL (6.4-8.2)
[2019-12-12 18:40] LABS: APPEARANCE CLEAR (CLEAR); BILIRUBIN NEGATIVE (NEGATIVE); COLOR YELLOW (YELLOW); GLUCOSE NEGATIVE (NEGATIVE); KETONE NEGATIVE (NEGATIVE); NITRITE NEGATIVE (NEGATIVE); PROTEIN NEGATIVE (NEGATIVE); UROBILINOGEN NORMAL (NORMAL)
[2019-12-12] MEDS ORDERED: COLACE100 MG PO (20:05)
[2019-12-12 20:43] VITALS: BP 138/79
== END 2019-12-12 20:25 | disposition home or self-care (01) ==
LOC: D.ER 15:56
PROVIDERS: Family Medicine
DX: R10.30 Lower abdominal pain, unspecified (principal); K59.00 Constipation, unspecified; I10 Essential (primary) hypertension

== ENCOUNTER 2020-03-08 14:00 | Emergency (ER) | payer MEDICARE ==
[~2020-03-08] VITALS: Ht 167.6 cm; Wt 71.8 kg
[~2020-03-08 14:00] MED LIST changes: +COLACE100 MG PO
[2020-03-08 14:15] VITALS: Ht 167.6 cm; Wt 71.8 kg
[2020-03-08 14:37] LABS: BASOPHILS 0.2 % (0-2); EOSINOPHILS 0.6 % (0-7); HEMATOCRIT 41.4 % (36.0-48.0); HEMOGLOBIN 13.4 g/dL (12-16); IMMATURE GRANULOCYTES 0.4 % (0-5); LYMPHOCYTES 33.9 % (15-50); MCH 30.1 pg (26.0-34.0); MCHC 32.4 g/dL (31.0-37.0); MONOCYTES 12.9 % (2-11); PLATELET COUNT 281 10x3/uL (130-400); RBC 4.45 10x6/uL (4.00-5.40); RDW 12.8 % (11.5-14.5)
[2020-03-08 14:52] LABS: APTT 30.7 SECONDS (22.8-39.4); INR 0.92 (0.85-1.17); PROTIME 12.3 SECONDS (11.6-15.0)
[2020-03-08 14:57] LABS: CALC OSMOLALITY 272 mosm/kg (275-300); CALCIUM 8.9 mg/dL (8.5-10.1); CARBON DIOXIDE 27.9 mmol/L (21.0-32.0); CHLORIDE - SERUM 103 mmol/L (98-107); CREATININE - SERUM 0.8 mg/dL (0.6-1.3); GLUCOSE 86 mg/dL (74-106); POTASSIUM - SERUM 3.5 mmol/L (3.5-5.1); SODIUM 138 mmol/L (136-145); UREA NITROGEN 8 mg/dL (7-18); eGFR NON AFRICAN AMERICAN 79 mL/min (90-120)
[2020-03-08] MEDS ORDERED: ZITHROMAX TRI-500 MG PO (15:04)
[2020-03-08] MEDS ORDERED: MEDROL DOSE PACK4 MG PO (15:04)
[2020-03-08 15:12] LABS: ALBUMIN 3.7 g/dL (3.4-5.0); ALKALINE PHOSPHATASE 47 U/L (30-120); ALT (SGPT) 26 U/L (10-68); BILIRUBIN - TOTAL 0.23 mg/dL (0.2-1.3); CKMB 0.6 U/L (0.0-3.6); CREATINE KINASE 46 UL (21-215); MAGNESIUM - SERUM 1.8 mg/dL (1.8-2.4); PROTEIN - SERUM 6.9 g/dL (6.4-8.2)
[2020-03-08 15:22] LABS: TROPONIN-I < 0.017 ng/mL (0.000-0.060)
[2020-03-08 15:51] VITALS: BP 131/76
== END 2020-03-08 15:52 | disposition home or self-care (01) ==
LOC: D.ER 14:00
PROVIDERS: Emergency Medicine
DX: J20.9 Acute bronchitis, unspecified (principal); R07.9 Chest pain, unspecified; R05 Cough

== ENCOUNTER 2020-03-14 13:02 | Emergency (ER) | payer MEDICARE ==
[~2020-03-14] VITALS: Ht 167.6 cm; Wt 67.3 kg
[~2020-03-14 13:02] MED LIST changes: +MEDROL DOSE PACK4 MG PO; +ZITHROMAX TRI-500 MG PO
[2020-03-14 13:08] VITALS: BP 130/74; Ht 167.6 cm; Wt 67.3 kg
== END 2020-03-14 14:05 | disposition left against medical advice (07) ==
LOC: D.ER 13:02
DX: Z53.29 Procedure and treatment not carried out because of patient's decision for other reasons (principal); R07.9 Chest pain, unspecified; J40 Bronchitis, not specified as acute or chronic

== ENCOUNTER 2020-04-29 12:55 | Emergency (ER) | payer MEDICARE ==
[~2020-04-29] VITALS: Ht 167.6 cm; Wt 70.0 kg
[2020-04-29 13:00] VITALS: Ht 167.6 cm; Wt 70.0 kg
[2020-04-29 14:25] LABS: CALCIUM 8.3 mg/dL (8.5-10.1); CARBON DIOXIDE 33.2 mmol/L (21.0-32.0); CREATININE - SERUM 0.9 mg/dL (0.6-1.3); POTASSIUM - SERUM 3.2 mmol/L (3.5-5.1)
[2020-04-29 14:31] LABS: BASOPHILS 0.3 % (0-2); EOSINOPHILS 0.4 % (0-7); HEMATOCRIT 40.4 % (36.0-48.0); HEMOGLOBIN 13.2 g/dL (12-16); IMMATURE GRANULOCYTES 0.8 % (0-5); LYMPHOCYTES 24.2 % (15-50); MCH 30.6 pg (26.0-34.0); MCHC 32.7 g/dL (31.0-37.0); MCV 93.7 fL (80.0-100.0); MONOCYTES 13.4 % (2-11); NEUTROPHILS 60.9 % (40-80); PLATELET COUNT 302 10x3/uL (130-400); RBC 4.31 10x6/uL (4.00-5.40); RDW 12.9 % (11.5-14.5); WBC 7.1 10x3/uL (4.8-10.8)
[2020-04-29 14:38] LABS: ALBUMIN 3.6 g/dL (3.4-5.0); BILIRUBIN - TOTAL 0.4 mg/dL (0.2-1.3); PROTEIN - SERUM 6.6 g/dL (6.4-8.2)
[2020-04-29] MEDS ORDERED: MOBIC7.5 MG PO (15:27)
[2020-04-29] MEDS ORDERED: PREDNISONE20 MG PO (15:27)
[2020-04-29] MEDS ORDERED: KLOR-CON 1010 MEQ PO (15:28)
[2020-04-29 16:26] VITALS: BP 138/90
== END 2020-04-29 16:26 | disposition home or self-care (01) ==
LOC: D.ER 12:55
PROVIDERS: Emergency Medicine
DX: R07.89 Other chest pain (principal); M25.562 Pain in left knee; M25.561 Pain in right knee; M17.0 Bilateral primary osteoarthritis of knee; R79.89 Other specified abnormal findings of blood chemistry; E83.51 Hypocalcemia; E87.6 Hypokalemia; R60.9 Edema, unspecified; R06.02 Shortness of breath; M54.6 Pain in thoracic spine

== ENCOUNTER 2020-07-26 20:51 | Emergency (ER) | payer MEDICARE ==
[~2020-07-26] VITALS: Ht 167.6 cm; Wt 59.1 kg
[~2020-07-26 20:51] MED LIST changes: +KLOR-CON 1010 MEQ PO; +MOBIC7.5 MG PO; +PREDNISONE20 MG PO
[2020-07-26 21:03] VITALS: Ht 167.6 cm; Wt 59.1 kg
[2020-07-26] MEDS ORDERED: FUROSEMIDE20 MG PO (21:08)
[2020-07-26 21:51] LABS: BASOPHILS 0.2 % (0-2); EOSINOPHILS 1.2 % (0-7); HEMATOCRIT 39.1 % (36.0-48.0); HEMOGLOBIN 13.1 g/dL (12-16); LYMPHOCYTES 35.5 % (15-50); MCH 30.3 pg (26.0-34.0); MCHC 33.5 g/dL (31.0-37.0); MCV 90.5 fL (80.0-100.0); MEAN PLATELET VOLUME 8.2 fL (7.4-10.4); MONOCYTES 10.9 % (2-11); NEUTROPHILS 52.2 % (40-80); PLATELET COUNT 301 10x3/uL (130-400); RBC 4.32 10x6/uL (4.00-5.40); RDW 12.2 % (11.5-14.5); WBC 4.9 10x3/uL (4.8-10.8)
[2020-07-26 21:57] LABS: APTT 32.2 SECONDS (22.8-39.4); CALC OSMOLALITY 278 mosm/kg (275-300); CALCIUM 8.4 mg/dL (8.5-10.1); CARBON DIOXIDE 27.4 mmol/L (21.0-32.0); CHLORIDE - SERUM 104 mmol/L (98-107); CREATININE - SERUM 0.7 mg/dL (0.6-1.3); GLUCOSE 109 mg/dL (74-106); INR 0.97 (0.85-1.17); POTASSIUM - SERUM 3.5 mmol/L (3.5-5.1); PROTIME 12.9 SECONDS (11.6-15.0); SODIUM 140 mmol/L (136-145); UREA NITROGEN 9 mg/dL (7-18); eGFR NON AFRICAN AMERICAN > 90 mL/min (90-120)
[2020-07-26 22:12] LABS: ALBUMIN 3.7 g/dL (3.4-5.0); ALKALINE PHOSPHATASE 39 U/L (30-120); ALT (SGPT) 20 U/L (10-68); BILIRUBIN - TOTAL 0.26 mg/dL (0.2-1.3); CKMB 1.3 U/L (0.0-3.6); CREATINE KINASE 49 UL (21-215); MAGNESIUM - SERUM 1.9 mg/dL (1.8-2.4); PRO BNP 62 pg/mL (0-125); PROTEIN - SERUM 6.4 g/dL (6.4-8.2)
[2020-07-26 22:18] LABS: TROPONIN-I < 0.017 ng/mL (0.000-0.060)
[2020-07-26 23:45] VITALS: BP 135/84
== END 2020-07-26 23:45 | disposition home or self-care (01) ==
LOC: D.ER 20:51
PROVIDERS: Family Medicine
DX: A64 Unspecified sexually transmitted disease (principal); R07.9 Chest pain, unspecified; R06.02 Shortness of breath

== ENCOUNTER → 2020-08-25 10:17 | Outpatient (CLI) | payer MEDICARE ==
[2020-07-26 21:03] VITALS: BMI 21.0
[~2020-08-25 10:17] MED LIST changes: +FUROSEMIDE20 MG PO
== END | disposition home or self-care (01) ==
LOC: D.HCCARDIO 08-18 10:02
PROVIDERS: ATTEND Internal Medicine Cardiovascular Disease
DX: I20.9 Angina pectoris, unspecified (principal)

== ENCOUNTER 2020-08-30 14:41 | Inpatient (IN) | payer MEDICARE ==
[~2020-08-30] VITALS: Ht 152.4 cm; Wt 68.2 kg
--- NOTE | ~2020-08-30 | HEMODYNAMI ---
PATIENT:DAVON RODRÍGUEZ MEDICAL RECORD: [id number] : 65 LOCATION:[facility] D.2121 ADMISSION DATE: 08/30/20 Generatedon:08/31/202016:07 Patient name: DAVON RODRÍGUEZ Patient #: [id number] SSN: [id number] : 1965 Date of study: 08/31/2020 Page: Of Hemodynamic Procedure Report Patient Data Patient Demographics Procedure consent was obtained First Name: DAVON Gender: Female Last Name: MARCOS : 1965 Patient #: [id number] Age: 55 year(s) Race: Black SSN: [id number] Additional ID: [id number] Contact details [address]: [address] [place] [address] [address] State: [place] City: [place] Zip code: [address] Past Medical History Allergies: No known allergies Admission Admission Data Admission Date: 08/30/2020 Admission Time: 17:44 Arrival Date: 08/31/2020 Arrival Time: 0:00 Admit Source: Other Insurance Payor: Medicare Room #: D.2121 [facility] #: [id number] Height (in.): 59.84 BSA: 1.65 (m2) Height (cm.): 152 BMI: 29.43 (kg/m2) Weight (lbs.): 149.92 Weight (kg.): 68 Lab Results Lab Result Date: 08/31/2020 Lab Result Time: 0:00 Biochemistry Name Units Result Min Max BUN mg/dl 10 --(-*--)-- 7 18 Creatinine mg/dl 0.7 --(*---)-- 0.6 1.3 CBC Name Units Result Min Max Hemoglobin g/dl 13 -*(----)-- 13.5 17.5 Procedure Procedure Types Cath Procedure Diagnostic Procedure LHC LHC w/Coronaries Procedure Description Procedure Date Procedure Date: 08/31/2020 Procedure Start Time: 15:57 Procedure End Time: 16:05 Procedure Staff Name Function Tony Hernandez MD Performing Physician Amy Kincaid RT Monitor Simi Cooney RN Nurse Dalila Cantrell RT Scrub Indication Chest tightness w/exertion Procedure Data Cath Procedure Fluoroscopy Diagnostic fluoroscopy Total fluoroscopy Time: 1.7 time: 1.7 min min Diagnostic fluoroscopy Total fluoroscopy dose: 253 dose: 253 mGy mGy Contrast Material Contrast Material Type Amount (ml) Isovue 370 32 Entry Location Entry Primary Successful Side Size Upsize Upsize Entry Closure Munoz ccessful Closure Location (Fr) 1 (Fr) 2 (Fr) Remarks Device Remarks Radial Right 6 Fr Mechanical artery Short Compression Estimated blood loss: 5 ml Diagnostic catheters Device Type Used For End Catheter Placement DIAGNOSTIC [place] 110cm 5 Procedure Fr catheter ([id number]) Procedure Complications No complications Procedure Medications Medication Administration Route Dosage 0.9% NaCl I.V. 100 ml/hr Heparin Flush Bag added to field 2 bags (1000units/500ml NS) Lidocaine 2% added to field 20 Oxygen NC 2 l/min Versed I.V. 1 mg Fentanyl I.V. 50 mcg Radial Cocktail added to field 1 syringe (Verapamil 2mg/Nitro 400mcg/Heparin 1500units) Versed I.V. 0.5 mg Fentanyl I.V. 25 mcg Hemodynamics Rest BSA: 1.65 (m2) HGB: 13 (g/dl) O2 Consumption: Estimated: 153.85 (ml/min) O2 Cons umption indexed: Estimated:93.24 (ml/min/m) Heart Rate: 62 (bpm) Pressure Samples Time Site Value (mmHg) Purpose Heart Use Rate(bpm) 15:58 LV 101/7,13 Snapshot 70 15:58 AO 126/90(104) Pullback 88 Gradients Valve Time Site Site 2 Mean SEP/DFP Peak To Heart Use 1 (mmHg) (sec/min) Peak Rate (mmHg) (bpm) Aortic 15:58 LV AO 1 8 88 126/90(104) Calculations Valve P-P Mean Valve Index Valve Source Name Gradient Area Flow (cm2) Aortic 1 1 Snapshots Pre Cath Intra NCS Post Cath Vital Signs Time Heart Resp SPO2 etCO2 NIBP (mmHg) Rhythm Pain Sedation Rate (ipm) (%) (mmHg) Status Level (bpm) 15:40:52 59 22 100 36.1 145/90(124) NSR 0 (11) 10(A) , No pain 15:45:06 64 18 100 33.1 138/86(108) NSR 0 (11) 10(A) , No pain 15:49:20 61 18 99 29.3 140/80(102) NSR 0 (11) 10(A) , No pain 15:53:34 62 15 99 39.8 133/84(104) NSR 0 (11) 9(A) , No pain 15:57:46 83 15 98 31.5 116/79(96) NSR 0 (11) 9(A) , No pain 16:01:52 79 13 96 39.1 117/81(97) NSR 0 (11) 9(A) , No pain 16:05:55 97 36 118/85(103) NSR 0 (11) 9(A) , No pain Medications Time Medication Route Dose Verified Delivered Reason Notes Effectiveness by by 15:42:01 0.9% NaCl I.V. 100ml/hr Tony Simi used for [place] procedure MD PRABHAKAR 15:42:10 Heparin Flush added 2 bags Tony Simi used for Bag to [place] procedure (1000units/500ml field VARGHESE RN NS) 15:42:20 Lidocaine 2% added 20ml Tony Simi for local to vial [facility] anesthetic field MD PRABHAKAR 15:42:28 Oxygen NC 2 l/min Tony Simi for low 02 [facility] David knowles MD, RN 15:51:40 Versed I.V. 1 mg Tony Simi for sedation [facility] David Cooney MD, RN 15:51:49 Fentanyl I.V. 50 mcg Tony Simi for sedation [facility] David Cooney MD, RN 15:52:48 Radial Cocktail added 1 Tony Simi for (Verapamil to syringe [place] vasodilation 2mg/Nitro field MD PRABHAKAR 400mcg/Heparin 1500units) 15:57:07 Versed I.V. 0.5 mg Tony Simi for sedation [facility] David Cooney MD, RN 15:57:12 Fentanyl I.V. 25 mcg Tony Simi for sedation [facility] David Cooney MD, RN Procedure Log Time Note 15:21:51 Arrival Date: 08/31/2020 12:00:00 AM 15:21:53 Admit Source: Other 15:22:02 Insurance Payor : Medicare 15:22:15 Patient Height : 59.84 inches 15:22:19 Patient Weight : 149.92 lbs 15::51 Lab Result : Hemoglobin 13 g/dl 15:: Lab Result : Creatinine 0.7 mg/dl 15::51 Lab Result : BUN 10 mg/dl 15:24:54 Indication : Chest tightness w/exertion 15:25:07 Procedure Status Urgent Heart Cath (IP). 15:25:10 Simi Cooney RN sent for patient. Start room use. 15:25:11 Time tracking: Regular hours (M-F 7:00 - 5:00) 15:25:16 Plan of Care:Hemodynamics will remain stable., Cardiac rhythm will remain stable., Comfort level will be maintained., Respiratory function will remain adequate., Patient/ family verbilizes understanding of procedure., Procedure tolerated without complication., Recovers from procedure without complications.. 15:39:49 Vital chart was started 15:41:28 Patient received from Med II to CCL 1 Alert and oriented. Tansferred to table in Supine position. 15:41:32 Signed procedure consent form obtained from patient. 15:41:33 Warm blankets applied, and srini hugger turned on for patient comfort. 15:41:34 Correct patient and procedure confirmed by team. 15:41:34 ECG and BP/O2 sat monitors applied to patient. 15:41:36 Full Disclosure recording started 15:41:38 Baseline sample Acquired. 15:41:40 Baseline sample Acquired. 15:41:44 Rhythm: sinus rhythm 15:42:01 0.9% NaCl 100ml/hr I.V. was administered by Simi Cooney RN; used for procedure; Verbal order read back and verified. 15:42:02 H&P Date Dictated: 08/30/2020 Within 30 days and on chart.. 15:42:03 Pre-procedure instructions explained to patient. 15:42:03 Pre-op teaching completed and patient verbalized understanding. 15:42:07 Family unavailable. 15:42:10 Heparin Flush Bag (1000units/500ml NS) 2 bags added to field was administered by Simi Cooney RN; used for procedure; Verbal order read back and verified. 15:42:11 Patient NPO since Midnight. 15:42:19 Patient allergic to No known allergies 15:42:20 Lidocaine 2% 20ml vial added to field was administered by Simi Cooney RN; for local anesthetic; Verbal order read back and verified. 15:42:21 Is the patient allergic to Iodine/contrast media? No. 15:42:23 Was the patient premedicated? No 15:42:24 Is patient on blood thinner?No 15:42:25 Patient diabetic? No. 15:42:27 If diabetic: On Metformin? N/A 15:42:28 Oxygen 2 l/min NC was administered by Simi Cooney RN; for low 02 sats; Verbal order read back and verified. 15:42:29 ----Pre-sedation anethsthesia assessment.---- 15:42:31 Previous problem with sedation/anesthesia? No ? 15:42:32 Snore? No 15:42:34 Sleep apnea? No 15:42:35 Deviated septum? No 15:42:36 Opens mouth fully? Yes 15:42:38 Sticks out tongue? Yes 15:42:41 Airway obstruction? No ? 15:42:43 Dentures? No ? 15:42:47 Pre procedure: right dorsailis pedis pulse 2+ Normal; easily identifiable; not easily obliterated 15:42:50 Modified Den's test Ulnar < 7 seconds 15:42:52 Patient pain scale 0/10 ?. 15:42:59 IV patent on arrival in left antecubital with 0.9% NaCl at KVO. 15:43:04 Lab results completed and on chart. 15:43:08 Stress Test: yes; abnormal inferior wall 15:43:12 Right Radial & Right Groin area was prepped with chlora-prep and draped in sterile fashion 15:45:18 Patient not . Patient is over age 55. 15:45:22 Alarms reviewed by R. N. 15:45:23 Sharps counted by scrub and verified by R.N. 15:46:44 Use device set Radial Dx or PCI 15:46:45 ACIST Syringe (84704) opened to sterile field. 15:46:46 Medline Cath Pack ([id number]) opened to sterile field. 15:46:47 Bag Decanter () opened to sterile field. 15:46:47 ACIST Hand Control (48205) opened to sterile field. 15:46:48 ACIST Manifold (66719) opened to sterile field. 15:46:51 MBrace Wrist Support ([id number]) opened to sterile field. 15:46:52 EMERALD Guide Wire (393-323) opened to sterile field. 15:46:53 SHEATH 6FR RAIN (0098166) opened to sterile field. 15:48:55 --------ALL STOP TIME OUT------ 15:48:56 Final Timeout: patient, procedure, and site verified with staff and physician. All members of the team are in agreement. 15:48:58 Right Radial & Right Groin site verified by team. 15:49:01 Fire Safety Assessment: A--An alcohol-based skin anteseptic being used preoperatively., C--Open oxygen or nitrous oxide is being used., D--An ESU, laser, or fiber-optic light is being used. 15:49:06 Physical assessment completed. ASA score P 2 - A patient with mild systemic disease as per Tony Hernandez MD. 15:49:09 1) 90+ Normal kidney functon but urine findings or structural abnormalities or genetic trait point to kidney disease. 15:49:11 Maximum allowable contrast dose (3.7 X eGFR X 0.75)250 ml. 15:49:15 Sedation plan: IV Moderate Sedation Medication:Versed, Fentanyl 15:51:40 Versed 1 mg I.V. was administered by Simi Cooney RN; for sedation; Verbal order read back and verified. 15:51:49 Fentanyl 50 mcg I.V. was administered by Simi Cooney RN; for sedation; Verbal order read back and verified. 15:52:48 Radial Cocktail (Verapamil 2mg/Nitro 400mcg/Heparin 1500units) 1 syringe added to field was administered by Simi Cooney RN; for vasodilation; Verbal order read back and verified. 15:56:38 Procedure started. 15:56:45 A DIAGNOSTIC [place] 110cm 5 Fr catheter (659990) was advanced over the wire and used for Procedure. 15:57:07 Versed 0.5 mg I.V. was administered by Simi Cooney RN; for sedation; Verbal order read back and verified. 15:57:12 Fentanyl 25 mcg I.V. was administered by Simi Cooney RN; for sedation; Verbal order read back and verified. 15:57:30 Local anesthetic to right radial artery with Lidocaine 2% by Tony Hernandez MD.INITIAL ACCESS ONLY 15:57:57 A 6 Fr Short sheath was inserted into the Right Radial artery 15:58:21 LV hemodynamics recorded. 15:58:22 LV gram done using YUEN 15:58:25 Injector settings: Ml/sec: 5, Volume: 15, 15:58:42 EF : 55 % 15:58:57 LCA angiography performed. 15:59:00 Injector settings: Ml/sec: 3, Volume: 6, 16:00:10 RCA angiography performed. 16:00:15 Injector settings: Ml/sec: 3, Volume: 6, 16:00:32 Catheter removed. 16:00:43 Sheath removed intact; hemostasis achieved with Mechanical Compression to the Right Radial artery. 16:00:48 ZEPHYR REGULAR TR BAND (240189) opened to sterile field. 16:00:52 Procedure ended.(Physican Out) 16:01:08 Fluoroscopy time 01.70 minutes. 16:01:13 Fluoroscopy dose: 253 mGy 16:01:13 Flurop Dose total: 253 16:01:20 Dose Area Product 36638 mGy/cm. 16:01:26 Contrast amount:Isovue 370 32ml. 16:01:28 Maximum allowable dose exceeded? No. 16:01:29 Sharps counted by scrub and verified by R.N. 16:01:34 [place] band inflated with 10cc of air. 16:01:36 Post Procedure Pulses reassessed and unchanged 16:01:38 Post procedure: right dorsailis pedis pulse 2+ Normal; easily identifiable; not easily obliterated. 16:01:41 Post-procedure physical assessment completed. ASA score P 2 - A patient with mild systemic disease as per Tony Hernandez MD. 16:01:44 Post procedure rhythm: unchanged. 16:01:47 Estimated blood loss: 5 ml 16:02:55 Post procedure instruction explained to patient.Patient verbalizes understanding. 16:02:56 Patient needs reinforcement of post procedure teaching. 16:04:05 Procedure type changed to Cath procedure, Diagnostic procedure, LHC, LHC w/Coronaries 16:05:19 Procedure and supply charges have been captured, reviewed, submitted and are correct. 16:05:23 Procedure Complication : No complications 16:05:25 Vital chart was stopped 16:05:30 Operative report dictated upon procedure completion. 16:05:30 See physician's report for complete and final results. 16:05:43 Report given to [facility]. 16:05:47 Patient transfered to [facility] with Bed. 16:05:49 Procedure ended. 16:05:49 Full Disclosure recording stopped 16:05:57 End room use (Document Last) 16:06:07 End room use (Document Last) Device Usage Item Name Manufacture Quantity Catalog Hospital Part Current Minima l Lot# / Number Charge Number Stock Stock Serial# Code ACIST Acist 1 50820 [id number] [id number] 287611 20 Syringe Medical (98281) Systems Inc Medline Medline 1 [id number] 794423 80569 632599 5 Cath Pack ([id number]) Bag Microtek 1 2001S 309862 11194 658198 5 Decanter Medical Inc. () ACIST Hand Acist 1 44825 010606 342151 118892 5 Control Medical (78347) Systems Inc ACIST Acist 1 85661 232114 044265 133379 5 Manifold Medical (74482) Systems Inc MBrace Advanced 1 140-0250-00 560832 34352 633498 5 Wrist Vascular Support Dynamics ([id number]) EMERALD Cardinal 1 502-455 554765 131843 917264 5 Guide Wire Health (502455) SHEATH 6FR Cardinal 1 2905550 495666 6907563 804685 5 [facility] (3652194) DIAGNOSTIC Terumo 1 40-5013 242913 787520 017152 5 [place] 110cm 5 Fr catheter (913741) ZEPHYR Cardinal 1 329257 844619 9848491 608836 5 REGULAR TR Health BAND (482441) Signature Audit [place] Stage Time Signature Unsigned Intra-Procedure 08/31/2020 Amy Kincaid 4:06:07 PM RT(R) Intra-Procedure 08/31/2020 Simi 4:06:33 PM Eros RN Intra-Procedure 08/31/2020 Tony Vásquez 4:07:03 PM David VARGHESE [facility] [address] [place] [address]
[2020-08-30 15:37] LABS: BASOPHILS 0.1 % (0-2); EOSINOPHILS 0.3 % (0-7); HEMATOCRIT 43.1 % (36.0-48.0); HEMOGLOBIN 14.2 g/dL (12-16); IMMATURE GRANULOCYTES 0.3 % (0-5); LYMPHOCYTES 28.4 % (15-50); MCH 29.8 pg (26.0-34.0); MCHC 32.9 g/dL (31.0-37.0); MCV 90.4 fL (80.0-100.0); NEUTROPHILS 57.9 % (40-80); PLATELET COUNT 277 10x3/uL (130-400); RBC 4.77 10x6/uL (4.00-5.40); RDW 12.6 % (11.5-14.5); WBC 6.9 10x3/uL (4.8-10.8)
[2020-08-30 15:40] LABS: APTT 28.2 SECONDS (22.8-39.4); INR 1.03 (0.85-1.17); PROTIME 13.4 SECONDS (11.6-15.0)
[2020-08-30 15:58] LABS: CALC OSMOLALITY 279 mosm/kg (275-300); CALCIUM 9.1 mg/dL (8.5-10.1); CARBON DIOXIDE 29.3 mmol/L (21.0-32.0); CHLORIDE - SERUM 104 mmol/L (98-107); CREATININE - SERUM 0.9 mg/dL (0.6-1.3); GLUCOSE 97 mg/dL (74-106); POTASSIUM - SERUM 3.6 mmol/L (3.5-5.1); SODIUM 141 mmol/L (136-145); UREA NITROGEN 9 mg/dL (7-18); eGFR NON AFRICAN AMERICAN 69 mL/min (90-120)
[2020-08-30 16:17] LABS: ALBUMIN 4.2 g/dL (3.4-5.0); ALKALINE PHOSPHATASE 45 U/L (30-120); ALT (SGPT) 22 U/L (10-68); BILIRUBIN - TOTAL 0.22 mg/dL (0.2-1.3); CKMB 0.8 U/L (0.0-3.6); CREATINE KINASE 39 UL (21-215); PROTEIN - SERUM 7.1 g/dL (6.4-8.2); TROPONIN-I 0.021 ng/mL (0.000-0.060)
[2020-08-30 16:42] VITALS: BP 129/76
[2020-08-30 17:30] VITALS: BP 140/82
[2020-08-30 18:30] VITALS: BP 122/80
--- NOTE | 2020-08-30 19:15 | NUR ---
REPORT TO ONCOMING SHIFT
[2020-08-30 19:44] VITALS: BP 117/81
--- NOTE | 2020-08-30 20:03 | NUR ---
COVID SWAB TAKEN TO LAB
[2020-08-30] MEDS ORDERED: ZOLOFT25 MG PO (21:15)
--- NOTE | 2020-08-30 22:18 | NUR ---
RECEIVED PATIENT FROM ER. PATIENT IS ALERT AND ORIENTED, RESTING COMFORTABLY IN BED. RESPIRATIONS ARE EVEN AND UNLABORED. NO S/S OF DISTRESS. NO C/O PAIN. CALL LIGHT WITHIN REACH. NEEDS MET. WILL CPOC.
[2020-08-30 22:28] LABS: CKMB 0.6 U/L (0.0-3.6); CREATINE KINASE 38 UL (21-215)
[2020-08-30 22:29] LABS: TROPONIN-I < 0.017 ng/mL (0.000-0.060)
[2020-08-31] VITALS: BP 99/53
[2020-08-31 00:19] VITALS: Ht 152.4 cm; Wt 68.2 kg
[2020-08-31 04:00] VITALS: BP 110/65
[2020-08-31 05:36] LABS: CKMB 0.6 U/L (0.0-3.6); CREATINE KINASE 44 UL (21-215); TROPONIN-I 0.022 ng/mL (0.000-0.060)
[2020-08-31 08:38] LABS: BASOPHILS 0.1 % (0-2); EOSINOPHILS 0.3 % (0-7); HEMATOCRIT 39.5 % (36.0-48.0); IMMATURE GRANULOCYTES 0.1 % (0-5); LYMPHOCYTES 28.7 % (15-50); MCH 29.7 pg (26.0-34.0); MCHC 32.9 g/dL (31.0-37.0); MCV 90.4 fL (80.0-100.0); MEAN PLATELET VOLUME 8.5 fL (7.4-10.4); MONOCYTES 12.8 % (2-11); PLATELET COUNT 304 10x3/uL (130-400); RBC 4.37 10x6/uL (4.00-5.40); RDW 12.6 % (11.5-14.5); WBC 6.7 10x3/uL (4.8-10.8)
[2020-08-31 09:01] LABS: ALT (SGPT) 20 U/L (10-68); CALC OSMOLALITY 274 mosm/kg (275-300); CALCIUM 8.6 mg/dL (8.5-10.1); CARBON DIOXIDE 25.3 mmol/L (21.0-32.0); CHLORIDE - SERUM 104 mmol/L (98-107); CHOLESTEROL, TOTAL 162 mg/dL (0-200); CREATININE - SERUM 0.7 mg/dL (0.6-1.3); GLUCOSE 93 mg/dL (74-106); HDL CHOLESTEROL 55 mg/dL (32-96); LDL CHOLESTEROL 96 mg/dL (0-100); LDL-HDL RATIO 1.7 ratio (1.5-3.5); POTASSIUM - SERUM 3.7 mmol/L (3.5-5.1); SODIUM 138 mmol/L (136-145); TRIGLYCERIDE 58 mg/dL (30-200); UREA NITROGEN 10 mg/dL (7-18); eGFR NON AFRICAN AMERICAN > 90 mL/min (90-120)
[2020-08-31 09:35] LABS: CKMB 0.5 U/L (0.0-3.6); CREATINE KINASE 48 UL (21-215); TROPONIN-I < 0.017 ng/mL (0.000-0.060)
[2020-08-31 09:52] VITALS: BP 119/77
--- NOTE | 2020-08-31 13:05 | HP ---
PATIENT: DAVON RODRÍGUEZ MEDICAL RECORD: [id number] ACCOUNT: [id number] LOCATION:[address] : 65 ADMISSION DATE: 08/30/20 PCP: No PCP HISTORY AND PHYSICAL EXAMINATION DATE OF ADMISSION: 08/30/2020 CHIEF COMPLAINT: Chest pain. HISTORY OF PRESENT ILLNESS: This is a 55-year-old -[place] female who actually lives in [place]. Her PCP lives in [place]. She has been coming up to [place] for medical care and she is from around here and has more family up here. She came with chest pain that radiated down her left arm. She had some nausea and diaphoresis. She has been seeing Dr. Desir and had a stress test last week that was reportedly abnormal and she states she is scheduled for an angiogram on 09/01/2020. She has been having chest pain for several days along with shortness of breath. She presents to the ED today and will be admitted. PAST MEDICAL AND SURGICAL HISTORY: Glaucoma and hypertension. PAST SURGICAL HISTORY: Hysterectomy, back surgery, times 3. DRUG ALLERGIES: None. HOME MEDICATIONS: Lisinopril 20 mg once a day, Lasix 20 mg once a day, and some sort of eye drops for glaucoma. SOCIAL HISTORY: She is and lives in [place]. FAMILY HISTORY: Father is . He had CHF. Mother at 37 of a ruptured cerebral aneurysm. HABITS: Never smoked. No alcohol or drugs. REVIEW OF SYSTEMS: GENERAL: She reports an 8-9 pound weight loss over the last several months. HEENT: No particular sinus or allergy problems. RESPIRATORY: No known diagnosis of asthma or emphysema. CARDIAC: See above history. She has been seeing Dr. Desir and had the abnormal stress test last week. GASTROINTESTINAL: Denies diarrhea, constipation or reflux. GENITOURINARY: No significant problems there. MUSCULOSKELETAL: She has had back surgery over 20 years ago and states that is not a problem. NEUROLOGIC: No migraines or seizures. PSYCHIATRIC: Denies depression or melancholia. PHYSICAL EXAMINATION: VITAL SIGNS: Temperature 96.8, pulse 60, respirations 16, blood pressure is 121/85, O2 sat 99% on room air. GENERAL: She is awake and alert. She does not appear in acute distress. HEENT: Unremarkable. NECK: Supple. No JVD or bruit. HEART: Regular rate and rhythm without murmur. HISTORY AND PHYSICAL [id number] RODRÍGUEZ,DAVON ABDOMEN: Soft, flat, nontender. EXTREMITIES: No edema. NEUROLOGICAL: Cranial nerves are intact. No focal motor or sensory deficits noted. LABORATORY DATA: CBC with a white count of 6900, hemoglobin 14.2, hematocrit 43.1. Basic metabolic panel is all normal. INR 1.03, magnesium 2.0. Liver functions are okay. Troponin 0.021. DIAGNOSTIC STUDIES: EKG is read as normal. Chest x-ray shows no acute findings. ASSESSMENT: 1. Chest pain. 2. Recent abnormal stress test by Dr. Desir. 3. History of hypertension. PLAN: We will admit. Serial cardiac enzymes. Consult cardiology. Other tests, procedures as warranted. TRANSINT:[id number] Voice Confirmation ID: [id number] DOCUMENT ID: [id number] BRITTNEY RAMOS MD at 1305 CC: [id number] DICTATION DATE: 08/30/201813 DETENTION ATTENDANT: 08/30/202215 ADM IN [facility] [address] [place] [address]
--- NOTE | 2020-08-31 16:32 | NUR ---
PT RETURN FROM COPIER AND PRINTER FIELD TECHNICIAN. RIGHT RADIAL SITE IS C/D/I WITH NO S/S OF BLEEDING OR HEMATOMA INTACT. PT IS ASLEEP WITH EYES CLOSED AT THIS TIME. NO S/S OF DISTRESS NOTED. VSS AND WNL. WILL CTM.
[2020-08-31] MEDS ORDERED: ALPHAGAN 0.2%5 ML EACH EYE (18:49)
[2020-08-31 20:00] VITALS: BP 124/78
--- NOTE | 2020-08-31 20:15 | NUR ---
ATTEMPTED TO RELEASE AIR FROM TR BAND. PATIENT BEGAN BLEEDING FROM SITE. AIR RETURNED. NO S/S OF DISTRESS. NO C/O PAIN. CALL LIGHT WITHIN REACH. WILL CPOC.
[2020-09-01] VITALS: BP 99/53
--- NOTE | 2020-09-01 00:15 | NUR ---
TR BAND REMOVED. INSERTION SITE CLEANSED AND BAND AID PLACED OVER SITE. NO S/S BLEEDING, BRUISING OR HEMATOMA. NO C/O PAIN. CALL IGHT WITHIN REACH. WILL CPOC.
[2020-09-01 04:00] VITALS: BP 107/58
[2020-09-01 08:57] VITALS: BP 138/85
--- NOTE | 2020-09-01 10:43 | OP ---
PATIENT NAME: DAVON RODRÍGUEZ MEDICAL RECORD: [id number] :65 LOCATION:D.M2 D.2121 ADMISSION DATE:08/31/20 SURGEON: KOMAL CHOU MD DATE OF OPERATION: 08/31/2020 PROCEDURE: Left heart catheterization, selective coronary angiography, right radial approach. CATHETERS: Radial sheath and [place] catheter. The procedure was well tolerated. The patient returned to aranda, sheath removed. TR band was placed. FINDINGS: Left ventriculography in 30-degree YUEN view: Normal wall motion and normal systolic function. CORONARY ANATOMY: LEFT MAIN: Left main is free of disease. LAD: Free of disease in the diagonal system. CIRCUMFLEX: Free of disease in the marginal system. RIGHT CORONARY ARTERY: Dominant artery, gives rise to PDA, free of disease. IMPRESSION: Normal left ventricular systolic function, normal coronary anatomy. TRANSINT:[id number] Voice Confirmation ID: [id number] DOCUMENT ID: [id number] KOMAL CHOU MD at 1043 CC: [id number] DICTATION DATE: 08/31/20 1608 MANAGER MECHANICAL: 08/31/20 2214 ADM IN [facility] [address] [place] [address]
--- NOTE | 2020-09-01 12:36 | NUR ---
IV AND TELEMETRY DCD. DC PLANS GIVEN. UNDERSTANDING VOICED.
--- NOTE | 2020-09-01 12:39 | NUR ---
ESCORTED TO CAR BY W/C.
== END 2020-09-01 12:44 | disposition home or self-care (01) | DRG 287 ==
LOC: D.ER 14:41 → D.EDHOLD 17:44 → OBSVTIME 17:44 → D.M2 17:44 → OBSVTIME 08-31 15:48 → D.M2 08-31 18:42
PROVIDERS: Family Medicine; Internal Medicine Cardiovascular Disease; Internal Medicine Interventional Cardiology; ADMIT Family Medicine; ATTEND Family Medicine
PROC: B2151ZZ Fluoroscopy of Left Heart using Low Osmolar Contrast (ICD-10-PCS; 2020-08-31)
PROC: 4A023N7 Measurement of Cardiac Sampling and Pressure, Left Heart, Percutaneous Approach (ICD-10-PCS; 2020-08-31)
PROC: B2111ZZ Fluoroscopy of Multiple Coronary Arteries using Low Osmolar Contrast (ICD-10-PCS; principal; 2020-08-31 15:00)
DX: R07.9 Chest pain, unspecified (principal); I10 Essential (primary) hypertension; R94.39 Abnormal result of other cardiovascular function study; L29.8 Other pruritus; Z87.891 Personal history of nicotine dependence

== ENCOUNTER 2021-02-02 16:46 | Emergency (ER) | payer MEDICARE ==
[~2021-02-02] VITALS: Ht 152.4 cm; Wt 70.9 kg
[~2021-02-02 16:46] MED LIST changes: +ALPHAGAN 0.2%5 ML EACH EYE; +CEFUROXIME500 MG PO; +CHRONULAC30 ML PO; +KEFLEX500 MG PO; +MUCINEX DM ER1 EAC1 PO; +PEPCID AC20 MG PO; +PHENERGAN50 MG RC; +STERAPRED 5MG 65 M1 PO; +ZOFRAN ODT4 MG/UDTAB PO; +ZOLOFT25 MG PO
[2021-02-02 16:51] VITALS: BP 134/89; Ht 152.4 cm; Wt 70.9 kg
[2021-02-02 17:07] LABS: BILIRUBIN NEGATIVE (NEGATIVE); KETONE NEGATIVE (NEGATIVE); NITRITE NEGATIVE (NEGATIVE); UROBILINOGEN NORMAL mg/dL (< 2)
== END 2021-02-02 17:44 | disposition home or self-care (01) ==
LOC: D.ER 16:46
PROVIDERS: Family Medicine
DX: Z20.2 Contact with and (suspected) exposure to infections with a predominantly sexual mode of transmission (principal); I10 Essential (primary) hypertension

== ENCOUNTER 2021-02-27 13:03 | Emergency (ER) | payer MEDICARE ==
[~2021-02-27] VITALS: Ht 152.4 cm; Wt 70.0 kg
[2021-02-27 13:12] VITALS: Ht 152.4 cm; Wt 70.0 kg
[2021-02-27 13:29] LABS: BILIRUBIN NEGATIVE (NEGATIVE); KETONE NEGATIVE (NEGATIVE); NITRITE NEGATIVE (NEGATIVE); UROBILINOGEN NORMAL mg/dL (< 2)
[2021-02-27 14:41] VITALS: BP 122/72
== END 2021-02-27 14:42 | disposition home or self-care (01) ==
LOC: D.ER 13:03
PROVIDERS: Family Medicine
DX: R10.30 Lower abdominal pain, unspecified (principal); Z72.51 High risk heterosexual behavior; Z20.2 Contact with and (suspected) exposure to infections with a predominantly sexual mode of transmission; I10 Essential (primary) hypertension

== ENCOUNTER 2021-03-27 16:15 | Emergency (ER) | payer MEDICARE ==
[~2021-03-27] VITALS: Ht 152.4 cm; Wt 68.2 kg
[2021-03-27 16:18] VITALS: Ht 152.4 cm; Wt 68.2 kg
[2021-03-27 16:38] LABS: BILIRUBIN NEGATIVE (NEGATIVE); KETONE NEGATIVE (NEGATIVE); NITRITE NEGATIVE (NEGATIVE); UROBILINOGEN NORMAL mg/dL (< 2)
[2021-03-27 16:42] LABS: BASOPHILS 0.3 % (0-2); EOSINOPHILS 0.8 % (0-7); HEMATOCRIT 40.1 % (36.0-48.0); HEMOGLOBIN 13.6 g/dL (12-16); IMMATURE GRANULOCYTES 0.3 % (0-5); LYMPHOCYTE ABS# 2.22 10x3/uL (1.18-3.74); LYMPHOCYTES 30.5 % (15-50); MCH 30.2 pg (26.0-34.0); MCHC 33.9 g/dL (31.0-37.0); MCV 89.1 fL (80.0-100.0); MEAN PLATELET VOLUME 8.3 fL (7.4-10.4); MONOCYTES 11.4 % (2-11); NEUTROPHIL ABS# 4.14 10x3/uL (1.56-6.13); NEUTROPHILS 56.7 % (40-80); PLATELET COUNT 310 10x3/uL (130-400); RDW 12.6 % (11.5-14.5); WBC 7.3 10x3/uL (4.8-10.8)
[2021-03-27 16:51] LABS: CALC OSMOLALITY 278 mosm/kg (275-300); CALCIUM 9.3 mg/dL (8.5-10.1); CARBON DIOXIDE 27.9 mmol/L (21.0-32.0); CHLORIDE - SERUM 104 mmol/L (98-107); CREATININE - SERUM 0.9 mg/dL (0.6-1.3); GLUCOSE 93 mg/dL (74-106); POTASSIUM - SERUM 3.1 mmol/L (3.5-5.1); SODIUM 141 mmol/L (136-145); UREA NITROGEN 8 mg/dL (7-18); eGFR NON AFRICAN AMERICAN 69 mL/min (90-120)
[2021-03-27 17:00] LABS: ALBUMIN 3.7 g/dL (3.4-5.0); ALKALINE PHOSPHATASE 47 U/L (30-120); ALT (SGPT) 24 U/L (10-68); AMYLASE - SERUM 63 U/L (25-115); LIPASE 127 U/L (73-393); PROTEIN - SERUM 6.8 g/dL (6.4-8.2)
[2021-03-27 17:05] LABS: TROPONIN-I < 0.017 ng/mL (0.000-0.060)
[2021-03-27 17:32] VITALS: BP 124/78
== END 2021-03-27 17:33 | disposition home or self-care (01) ==
LOC: D.ER 16:15
PROVIDERS: Family Medicine
DX: Z20.2 Contact with and (suspected) exposure to infections with a predominantly sexual mode of transmission (principal); N89.8 Other specified noninflammatory disorders of vagina; I10 Essential (primary) hypertension

== ENCOUNTER 2021-04-11 13:43 | Emergency (ER) | payer MEDICARE ==
[~2021-04-11] VITALS: Ht 152.4 cm; Wt 68.2 kg
[2021-04-11 13:49] VITALS: BP 109/65; Ht 152.4 cm; Wt 68.2 kg
[2021-04-11 14:20] LABS: BASOPHILS 1.1 % (0-2); EOSINOPHILS 0.6 % (0-7); HEMATOCRIT 40.3 % (36.0-48.0); HEMOGLOBIN 13.5 g/dL (12-16); LYMPHOCYTES 31.8 % (15-50); MCH 30.2 pg (26.0-34.0); MCHC 33.4 g/dL (31.0-37.0); MCV 90.5 fL (80.0-100.0); MEAN PLATELET VOLUME 5.9 fL (7.4-10.4); MONOCYTES 13.6 % (2-11); NEUTROPHILS 52.9 % (40-80); PLATELET COUNT 364 10x3/uL (130-400); RBC 4.45 10x6/uL (4.00-5.40); RDW 13.8 % (11.5-14.5); WBC 6.1 10x3/uL (4.8-10.8)
[2021-04-11 14:26] LABS: CALC OSMOLALITY 269 mosm/kg (275-300); CALCIUM 8.8 mg/dL (8.5-10.1); CARBON DIOXIDE 28.4 mmol/L (21.0-32.0); CHLORIDE - SERUM 103 mmol/L (98-107); CREATININE - SERUM 0.9 mg/dL (0.6-1.3); GLUCOSE 84 mg/dL (74-106); POTASSIUM - SERUM 3.4 mmol/L (3.5-5.1); SODIUM 136 mmol/L (136-145); UREA NITROGEN 9 mg/dL (7-18); eGFR NON AFRICAN AMERICAN 69 mL/min (90-120)
[2021-04-11 14:39] LABS: ALKALINE PHOSPHATASE 47 U/L (30-120); ALT (SGPT) 30 U/L (10-68); BILIRUBIN - TOTAL 0.47 mg/dL (0.2-1.3); PRO BNP 19 pg/mL (0-125); TROPONIN-I < 0.017 ng/mL (0.000-0.060)
== END 2021-04-11 16:04 | disposition home or self-care (01) ==
LOC: D.ER 13:43
PROVIDERS: Emergency Medicine
DX: R06.09 Other forms of dyspnea (principal); R60.0 Localized edema; I10 Essential (primary) hypertension; M79.602 Pain in left arm

== ENCOUNTER 2021-04-17 13:16 | Emergency (ER) | payer MEDICARE ==
[~2021-04-17] VITALS: Ht 152.4 cm; Wt 70.5 kg
[2021-04-17 13:22] VITALS: BP 130/86; Ht 152.4 cm; Wt 70.5 kg
== END 2021-04-17 16:15 | disposition home or self-care (01) ==
LOC: D.ER 13:16
DX: A64 Unspecified sexually transmitted disease (principal); I10 Essential (primary) hypertension

== ENCOUNTER 2021-04-24 19:16 | Emergency (ER) | payer MEDICARE ==
[~2021-04-24] VITALS: Ht 152.4 cm; Wt 70.3 kg
[2021-04-24 19:31] VITALS: BP 119/82; Ht 152.4 cm; Wt 70.3 kg
[2021-04-24 19:53] LABS: BILIRUBIN NEGATIVE (NEGATIVE); KETONE NEGATIVE (NEGATIVE); NITRITE NEGATIVE (NEGATIVE); UROBILINOGEN NORMAL mg/dL (< 2)
[2021-04-24 19:57] LABS: BASOPHILS 0.9 % (0-2); EOSINOPHILS 0.4 % (0-7); HEMATOCRIT 42.8 % (36.0-48.0); HEMOGLOBIN 14.1 g/dL (12-16); LYMPHOCYTES 24.7 % (15-50); MCH 29.8 pg (26.0-34.0); MCV 90.4 fL (80.0-100.0); MEAN PLATELET VOLUME 5.9 fL (7.4-10.4); MONOCYTES 7.5 % (2-11); NEUTROPHILS 66.5 % (40-80); PLATELET COUNT 414 10x3/uL (130-400); RBC 4.73 10x6/uL (4.00-5.40); RDW 13.7 % (11.5-14.5); WBC 8.2 10x3/uL (4.8-10.8)
[2021-04-24 20:14] LABS: CALC OSMOLALITY 278 mosm/kg (275-300); CALCIUM 8.7 mg/dL (8.5-10.1); CARBON DIOXIDE 29.3 mmol/L (21.0-32.0); CHLORIDE - SERUM 104 mmol/L (98-107); CREATININE - SERUM 0.9 mg/dL (0.6-1.3); GLUCOSE 117 mg/dL (74-106); POTASSIUM - SERUM 3.5 mmol/L (3.5-5.1); SODIUM 140 mmol/L (136-145); UREA NITROGEN 9 mg/dL (7-18); eGFR NON AFRICAN AMERICAN 69 mL/min (90-120)
[2021-04-24 20:18] LABS: ALKALINE PHOSPHATASE 42 U/L (30-120); ALT (SGPT) 24 U/L (10-68); AMYLASE - SERUM 52 U/L (25-115); LIPASE 78 U/L (73-393); PROTEIN - SERUM 7.1 g/dL (6.4-8.2)
[2021-04-24 20:24] LABS: TROPONIN-I < 0.017 ng/mL (0.000-0.060)
== END 2021-04-24 22:33 | disposition home or self-care (01) ==
LOC: D.ER 19:16
PROVIDERS: Emergency Medicine
DX: K59.00 Constipation, unspecified (principal); R11.2 Nausea with vomiting, unspecified; Z20.2 Contact with and (suspected) exposure to infections with a predominantly sexual mode of transmission

== ENCOUNTER 2021-05-06 13:00 | Inpatient (IN) | payer MEDICARE ==
[~2021-05-06] VITALS: Ht 152.4 cm; Wt 68.2 kg
[2021-05-06 13:48] LABS: HEMATOCRIT 43.8 % (36.0-48.0); HEMOGLOBIN 14.5 g/dL (12-16); MCH 29.7 pg (26.0-34.0); MCV 89.9 fL (80.0-100.0); RBC 4.87 10x6/uL (4.00-5.40); RDW 13.9 % (11.5-14.5); WBC 2.9 10x3/uL (4.8-10.8)
[2021-05-06 13:50] LABS: PLATELET COUNT 250 10x3/uL (130-400)
[2021-05-06 14:16] LABS: BILIRUBIN NEGATIVE (NEGATIVE); KETONE NEGATIVE mg/dL (< 1+); NITRITE NEGATIVE (NEGATIVE); PH 6.5 (5.0-8.0); UROBILINOGEN NORMAL mg/dL (< 2)
[2021-05-06 14:18] LABS: ANION GAP 10.3 mmol/L (8-16); CALCIUM 8.4 mg/dL (8.5-10.1); CARBON DIOXIDE 29.5 mmol/L (21.0-32.0); CREATININE - SERUM 0.9 mg/dL (0.6-1.3); POTASSIUM - SERUM 3.8 mmol/L (3.5-5.1)
[2021-05-06 14:23] LABS: ALBUMIN 3.8 g/dL (3.4-5.0); BILIRUBIN - TOTAL 0.19 mg/dL (0.2-1.3); PROTEIN - SERUM 7.1 g/dL (6.4-8.2)
[2021-05-06 14:57] LABS: LYMPHOCYTES 22 % (15-50); MONOCYTES 9 % (2-11); NEUTROPHILS 67 % (40-80); PLATELET ESTIMATE NORMAL
[2021-05-06 17:28] LABS: SARS-CoV-2 ANTIGEN POSITIVE- SARS-COV-2 (NEGATIVE)
[2021-05-06 19:49] VITALS: BP 105/68
--- NOTE | 2021-05-06 19:52 | NUR ---
PT GIVEN CRACKERS TO EAT, DENIES FURTHER NEEDS. CALL LIGHT IN REACH.
--- NOTE | 2021-05-06 20:04 | NUR ---
PT REPORT CALLED TO VANNA FERGUSON AT THIS TIME. ROOM DIRTY. WILL CALL WHEN CLEAN.
[2021-05-06 20:30] VITALS: BP 112/67
--- NOTE | 2021-05-06 21:24 | NUR ---
PT SAP PLANT MAINTENANCE CONSULTANT LIGHT, STATES SHE NEEDS TO USE RESTROOM. PT BROUGHT BEDSIDE COMMODE. PT UP TO BEDSIDE COMMODE INDEPENDENTLY. DENIES FURTHER NEEDS. CALL LIGHT IN REACH.
--- NOTE | 2021-05-06 23:00 | NUR ---
RECEIVED PT FROM ER VIA BED. PT A&O X4. PIV TO LEFT FOREARM PATENT AND INFUSING, NO REDNESS OR SWELLING. PT ABLE TO AMBULATE WITH ASSIST. O2 SAT 96% ON RA. EDUCATED PT ON ISOLATION PRECAUTIONS, CL AND NEEDS, VERBALIZED UNDERSTANDING. BED LOW, CL IN REACH.
[2021-05-06 23:12] VITALS: BP 103/57; Ht 152.4 cm; Wt 68.2 kg
[2021-05-07 06:55] LABS: BASOPHILS 0.1 % (0-2); EOSINOPHILS 0 % (0-7); MCHC 33.1 g/dL (31.0-37.0); MEAN PLATELET VOLUME 6.3 fL (7.4-10.4)
[2021-05-07 06:57] LABS: HEMATOCRIT 39.9 % (36.0-48.0); HEMOGLOBIN 13.2 g/dL (12-16); LYMPHOCYTES 15.7 % (15-50); MCH 29.8 pg (26.0-34.0); MCV 89.9 fL (80.0-100.0); NEUTROPHILS 81.2 % (40-80); PLATELET COUNT 219 10x3/uL (130-400); RBC 4.44 10x6/uL (4.00-5.40); RDW 13.5 % (11.5-14.5)
--- NOTE | 2021-05-07 07:00 | NUR ---
RECEIVED REPORT. ASSUMED CARE OF PATIENT. PATIENT REMAINS IN DROPLET ISOLATION FOR COVID POSITIVE.
[2021-05-07 07:02] LABS: APTT 33.5 SECONDS (22.8-39.4); INR 1.08 (0.85-1.17)
[2021-05-07 07:03] LABS: D-DIMER-QUANTITATIVE < 0.27 ug/mLFEU (0.20-0.54)
[2021-05-07 07:08] LABS: WBC 1.7 10x3/uL (4.8-10.8)
[2021-05-07 07:17] LABS: ALBUMIN 3.1 g/dL (3.4-5.0); ALKALINE PHOSPHATASE 68 U/L (30-120); ALT (SGPT) 72 U/L (10-68); CALCIUM 7.6 mg/dL (8.5-10.1); CARBON DIOXIDE 26.6 mmol/L (21.0-32.0); CKMB 0.4 U/L (0.0-3.6); CREATINE KINASE 82 UL (21-215); CREATININE - SERUM 0.7 mg/dL (0.6-1.3); GLUCOSE 183 mg/dL (74-106); MAGNESIUM - SERUM 2.2 mg/dL (1.8-2.4); PHOSPHOROUS 3.5 mg/dL (2.5-4.9); PROTEIN - SERUM 6.3 g/dL (6.4-8.2); TROPONIN-I < 0.017 ng/mL (0.000-0.060); UREA NITROGEN 7 mg/dL (7-18); eGFR NON AFRICAN AMERICAN > 90 mL/min (90-120)
[2021-05-07 07:26] LABS: CALC OSMOLALITY 280 mosm/kg (275-300); CHLORIDE - SERUM 106 mmol/L (98-107); POTASSIUM - SERUM 3.8 mmol/L (3.5-5.1); SODIUM 139 mmol/L (136-145)
[2021-05-07 07:29] VITALS: BP 98/62
--- NOTE | 2021-05-07 07:39 | NUR ---
HERE FOR ROUNDS.
--- NOTE | 2021-05-07 09:10 | NUR ---
PATIENT REQUESTING MEDICATION FOR CONSTIPATION, STATES NO BM IN LIKE 8 DAYS. THIS NURSE CLARIFIED WITH PATIENT THAT SHE CAME TO THE ED YESTERDAY FOR N/N/D X 4 DAYS, PATIENT STATES THEY GOT THE DIARRHEA PART WRONG. ABD GEOVANY, BS X 4, PATIENT VERBALIZES FLATUS THIS AM. AND PA INFORMED OF THIS REQUEST DURING MORNING ROUNDS AT THIS TIME.
[2021-05-07 09:50] LABS: C-REACTIVE PROTEIN 1.1 mg/dL (0.0-0.9)
--- NOTE | 2021-05-07 11:17 | NUR ---
NEW ORDERS RECIEVED FOR TRAMADOL, PATIENT REFUSED MORPHINE AND COMPLAINING OF PAIN. NO DISTRESS.
--- NOTE | 2021-05-07 11:43 | NUR ---
PATIENT REFUSED TRAMADOL, REQUESTING TORADOL NOW. REQUEST SENT TO PA, AWAITING ORDERS.
[2021-05-07 11:50] VITALS: BP 114/83
--- NOTE | 2021-05-07 12:03 | NUR ---
ONE TIME DOSE OF TORADOL ADMINISTERED ORDERED. PATIENT SITTING TO SIDE OF BED AT THIS TIME.
[2021-05-07 16:02] VITALS: BP 98/59
--- NOTE | 2021-05-07 17:35 | NUR ---
MEDICATED FOR PAIN AT THIS TIME. NO DISTRESS.
--- NOTE | 2021-05-07 17:50 | NUR ---
PATIENT RESTING PEACEFULLY AFTER RECEIVING MORPHINE AND ZOFRAN.
--- NOTE | 2021-05-07 17:51 | NUR ---
PATIENTS FAMILY BROUGHT PATIENT SMOKELESS TABACCO "CAN OF DIP". DUE TO HOSPITAL POLICY, DID NOT DISTRIBUTE TO PATIENT. PATIENT LABEL PLACED ON BAG AND IT LOCATED AT NURSES STATION.
--- NOTE | 2021-05-07 18:34 | NUR ---
PATIENT INFORMED BY CHARGE NURSE THAT WE CAN NOT PROVIDE HER SMOKELESS TOBACCO TO HER, WE ARE TOBACCO FREE FACILITY AND WE HAVE IT AT THE STATION WITH HER NAME ON IT AND SHE CAN PICK IT UP ON THE WAY OUT WHEN SHE IS DISCHARGED.
[2021-05-07 20:36] VITALS: BP 121/70
--- NOTE | 2021-05-07 21:07 | NUR ---
INITIAL ROUNDS COMPLETED AT 1920 HRS. PT DENIES ANY DISCOMFORT. ASSESSMENT COMPLETED AT THAT TIME. ALERT AND ORIENTED TO PERSON,PLACE AND TIME. CARRANZA. PALPABLE PERIPHERAL PULSES. LUNGS DIMINISHED IN BASES BILAT. IV TO LFA WITH NS AT 125CC/HR. IV PATENT. PM MEDS GIVEN. PT CURRENTLY WATCHING TV AND EATING JELLO. SR UP X1, CALL LIGHT WITHIN REACH.
--- NOTE | 2021-05-07 22:50 | NUR ---
MYLANTA PLUS 30CC PO GIVEN FOR C/O GAS. MORPHINE 2MG, ZOFRAN 4MG SIVP GIVEN FOR C/O ABD PAIN AND NAUSEA. CALL LIGHT WITHIN REACH.
--- NOTE | 2021-05-07 23:52 | NUR ---
PT BATHED SELF. GAIT EVEN AND STEADY.
[2021-05-08 02:23] VITALS: BP 109/70
--- NOTE | 2021-05-08 03:06 | NUR ---
PT RESTING WITH EYES CLOSED. RESP EVEN AND REGULAR. CALL LIGHT WITHIN REACH.
--- NOTE | 2021-05-08 04:22 | NUR ---
PT RESTING WITH EYES CLOSED. RESP EVEN AND REGULAR. CALL LIGHT WITHIN REACH.
[2021-05-08 06:14] VITALS: BP 105/63
[2021-05-08 06:29] LABS: HEMATOCRIT 36.5 % (36.0-48.0); HEMOGLOBIN 12.2 g/dL (12-16); MCH 29.9 pg (26.0-34.0); MCHC 33.3 g/dL (31.0-37.0); MCV 89.7 fL (80.0-100.0); MEAN PLATELET VOLUME 6.8 fL (7.4-10.4); PLATELET COUNT 238 10x3/uL (130-400); RBC 4.07 10x6/uL (4.00-5.40); RDW 13.5 % (11.5-14.5)
--- NOTE | 2021-05-08 06:29 | NUR ---
PT STATED SHE RESTED WELL DURING SHIFT. SB HR 52 PER CM. NEEDS MET; WILL CONTINUE TO MONITOR.
[2021-05-08 06:35] LABS: WBC 2.8 10x3/uL (4.8-10.8)
--- NOTE | 2021-05-08 07:20 | NUR ---
RECIEVE REPORT. ALERT AND ORIENTED X4. RESTING IN BED. DENIES ANY NEEDS. NO SIGNS OF DISTRESS. CONTINUE PLAN OF CARE AND SAFETY PRECAUTIONS.
[2021-05-08 07:24] LABS: ALKALINE PHOSPHATASE 55 U/L (30-120); ALT (SGPT) 60 U/L (10-68); CALCIUM 7.8 mg/dL (8.5-10.1); CHLORIDE - SERUM 109 mmol/L (98-107); PROTEIN - SERUM 5.7 g/dL (6.4-8.2); SODIUM 142 mmol/L (136-145); UREA NITROGEN 7 mg/dL (7-18)
[2021-05-08 07:27] LABS: LYMPHOCYTES 17 % (15-50); MONOCYTES 1 % (2-11); NEUTROPHILS 81 % (40-80); PLATELET ESTIMATE NORMAL
[2021-05-08 07:34] LABS: ALBUMIN 2.8 g/dL (3.4-5.0); CALC OSMOLALITY 286 mosm/kg (275-300); CREATININE - SERUM 0.6 mg/dL (0.6-1.3); GLUCOSE 208 mg/dL (74-106); eGFR NON AFRICAN AMERICAN > 90 mL/min (90-120)
[2021-05-08 07:45] VITALS: BP 100/63
[2021-05-08 11:23] VITALS: BP 105/66
[2021-05-08 15:11] VITALS: BP 117/54
[2021-05-08] MEDS ORDERED: TIMOPTIC 0.5 % O5 ML EACH EYE (19:49)
[2021-05-08] MEDS ORDERED: ALPHAGAN 0.2%5 ML EACH EYE (19:50)
--- NOTE | 2021-05-08 19:54 | NUR ---
INITIAL ROUNDS COMPLETED AT 1930 HRS. PT HAS C/O COUGH. STATES [facility] NOT WORKING. ALSO STATES SHE WANTS HER EYE DROPS AND DIFLUCAN FOR ITCH. [facility] PAGED AT 1950 HRS.
[2021-05-08 20:00] VITALS: BP 107/64
--- NOTE | 2021-05-08 22:15 | NUR ---
Ariana CEJA APRN RETURNS PAGE AT 8 HRS. INFORMED OF PT'S WANTS. NEW ORDERS RECEIVED AND NOTED. WENT IN PT'S ROOM AT 2024. PT VERY UPSET ABOUT NO EYE DROPS AND HER YEAST PROBLEM FROM THE IVAB AND STEROIDS. THREATENS TO LEAVE AMA. INFORMED PT IF SHE LEAVES AMA HER INSURANCE WILL NOT PAY FOR THE HOSPITAL BILL AND SHE WILL BE RESPONSIBLE. ASKED PT IF SHE MENTIONED EYE DROPS TO THE HUMAN RESOURCES RECRUITER AND MD WHO MADE ROUNDS TODAY. NO COMMENT. EYE DROPS NOT ON HOME MED LIST. ALSO INFORMED PT DHE RECEIVED PO DIFLUCAN THIS AM. PT THEN AGREED TO STAY BUT REFUSING IV FLUIDS AND IVABS. REFUSED BENADRYL. PSYCHIATRIC ATTENDANT GIVEN COPY OF EYE DROP MEDS TO SEE IF SHE CAN OBTAIN THEM FROM [facility]. CALL LIGHT WITHIN REACH.
[2021-05-09] VITALS: BP 115/67
--- NOTE | 2021-05-09 00:20 | NUR ---
PT RESTING WITH EYES CLOSED. RESP EVEN AND REGULAR. CALL LIGHT WITHIN REACH.
--- NOTE | 2021-05-09 02:47 | NUR ---
ROBITUSSIN 5CC PO GIVEN FOR C/O COUGH.
--- NOTE | 2021-05-09 04:28 | NUR ---
WATCHING TV. NO DISTRESS NOTED.
--- NOTE | 2021-05-09 05:14 | NUR ---
PT VERY UPSET SHE CAN'T HAVE ANY COUGH MEDICINE. THREATENING TO LEAVE AMA. INFORMED NEXT ROBITUSSIN AT 0830. HARD CANDY GIVEN FOR THROAT. PT AGREED TO STAY UNTIL SEES MD BUT STATES SHE WILL BE LEAVING NO LATER THAN 10 AM.
[2021-05-09 06:30] LABS: BASOPHILS 0.5 % (0-2); EOSINOPHILS 0 % (0-7); HEMATOCRIT 37.8 % (36.0-48.0); HEMOGLOBIN 12.4 g/dL (12-16); LYMPHOCYTES 5.6 % (15-50); MCH 29.8 pg (26.0-34.0); MCHC 32.9 g/dL (31.0-37.0); MCV 90.5 fL (80.0-100.0); MEAN PLATELET VOLUME 6.6 fL (7.4-10.4); MONOCYTES 3.4 % (2-11); NEUTROPHILS 90.5 % (40-80); RBC 4.18 10x6/uL (4.00-5.40); RDW 13.6 % (11.5-14.5)
[2021-05-09 06:36] LABS: PLATELET COUNT 299 10x3/uL (130-400); WBC 7.5 10x3/uL (4.8-10.8)
[2021-05-09 07:08] LABS: ALKALINE PHOSPHATASE 54 U/L (30-120); ALT (SGPT) 58 U/L (10-68); BILIRUBIN - TOTAL 0.19 mg/dL (0.2-1.3); CALCIUM 8.1 mg/dL (8.5-10.1); CARBON DIOXIDE 23.3 mmol/L (21.0-32.0); CHLORIDE - SERUM 107 mmol/L (98-107); POTASSIUM - SERUM 3.8 mmol/L (3.5-5.1); PROTEIN - SERUM 5.6 g/dL (6.4-8.2); SODIUM 143 mmol/L (136-145); UREA NITROGEN 6 mg/dL (7-18)
[2021-05-09 07:09] LABS: CALC OSMOLALITY 285 mosm/kg (275-300); CREATININE - SERUM 0.8 mg/dL (0.6-1.3); GLUCOSE 148 mg/dL (74-106); eGFR NON AFRICAN AMERICAN 79 mL/min (90-120)
--- NOTE | 2021-05-09 07:20 | NUR ---
RECIEVE REPORT. ALERT AND ORIENTED X4. EXPRESSES WANTING TO LEAVE. 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 NO SIGNS OF DISTRESS. ROOM AIR. CONTINUE PLAN OF CARE AND SAFETY PRECAUTIONS.
[2021-05-09 07:44] VITALS: BP 120/72
[2021-05-09] MEDS ORDERED: TESSALON PERLE100 MG PO (11:00)
[2021-05-09] MEDS ORDERED: VENTOLIN HFA [SP8 GM INH (11:00)
[2021-05-09] MEDS ORDERED: DULERA 100 MCG8.8 GM INH (11:00)
[2021-05-09] MEDS ORDERED: Zinc SULFATE PO (11:00)
[2021-05-09] MEDS ORDERED: VITAMIN D325 MC1 PO (11:01)
[2021-05-09] MEDS ORDERED: VITAMIN C PO (11:01)
[2021-05-09] MEDS ORDERED: GUAIFENESI100 MG/5 M PO (11:01)
[2021-05-09] MEDS ORDERED: MELATONIN 3 MG1 TAB PO (11:01)
[2021-05-09] MEDS ORDERED: PROTONIX40 MG PO (11:01)
[2021-05-09] MEDS ORDERED: FLORAJEN DIGES1 EACH PO (11:01)
[2021-05-09] MEDS ORDERED: MUCINEX600 MG PO (11:01)
[2021-05-09] MEDS ORDERED: DECADRON4 MG PO (11:02)
[2021-05-09] MEDS ORDERED: AZITHROMYCIN500 MG PO (11:03)
[2021-05-09] MEDS ORDERED: OMNICEF300 MG PO (11:03)
--- NOTE | 2021-05-09 13:07 | NUR ---
ALERT AND ORIENTED X4. SITTING UP IN BED DEMANDING IV BE TAKEN OUT. DC LT FA IV TIP INTACT. REFUSE TO WAIT FOR 'S APPROVAL FOR DISCHARGE. LEAVES ROOM WITHOUT PAPERS.
--- NOTE | 2021-05-09 18:47 | MORECARE ---
CASE MANAGEMENT DISCHARGE SUMMARY PATIENT: DAVON RODRÍGUEZ UNIT: [id number] ADM DATE: 05/06/21 AGE: 55 : 65 SEX: F ROOM/BED: D.2100 AUTHOR: LINH,DOC PHYSICIAN: REFERRING PHYSICIAN: DILIP BLACKMON DO DATE OF SERVICE: 05/09/21 Case Management Discharge Planning Summary COMMENTS ENTERED DATE: 05/09/21 18:43 CT COMMENT TYPE: Discharge Planning REVIEWER: Mary Carmen Ramirez PCP - PHARMACY - [facility] CM met with patient to complete initial dc planning assessment. CM educated patient on the CM role and verbal consent given by patient to complete assessment. Patient lives at home ALONE. Patient is independent. At discharge patient plans to return home and feels this is a safe discharge. CM discussed availability of home health, rehab services, and medical equipment. Patient will have family to transport home. Patient denied known discharge needs at this time. CM will continue to follow and will assist as needed with dc plans/needs. DCP REVIEW SUMMARY ANTICIPATED D/C DATE: EXPECTED LOS : CASE STATUS: DCP Initiated INITIAL REVIEW: 05/06/2021 INITIAL REVIEWER: Mary Carmen Ramirez FINAL DISCHARGE DISPOSITION: : FINAL REVIEWER: FINAL REVIEW DATE: DCP Focus Questions & Answers DCP Screen QUESTION: ANSWER Walking limitation: Patient stated self rated walking limitation present? : No Age: : 45 - 64 Prior living environment: : Lives Alone Disability ranking: : Grade 2: Slight disability DCP Evaluation QUESTION: ANSWER Patient's ability to cope with chronic illness : d. No chronic illness Patient gives permission to discuss discharge plans with: (name, relationship and number) : Edward Tony [phone] Patient's current cognitive status: : *Oriented to person, place, situation, time and present Patient and/or caregiver agree upon recommended discharge plan? : Yes Physical Status: : Independent with ADL's Does the patient have the ability to pay for or attain post discharge needs / services? : N/A Partial Dependence, assistance required for: : Ambulation / Mobility Living Arrangements: : Home Alone with Support Is there a likelihood that the patient will require additional services to return to the preadmission environment? : N/A Equipment needed for post hospitalization: : None Baseline cognitive status: : Intermittently confused / memory changes Patient with capacity for self-care or can be cared for in same environment as prior to hospitalization? 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 : N/A Does Patient have transportation to get home and to follow-up medical appointments when discharged from the hospital? : Yes Planned post hospital services covered by insurance plan? : N/A Would patient like to participate in any Care Coordination programs (if applicable): : Not applicable Does the patient have electricity at home? : Yes Does the patient have running water in their house? : Yes Equipment in use: : None Mental health screen: : No mental health history Resources / Services in place: : None DCP Re-evaluation QUESTION: ANSWER Would patient like to participate in any Care Coordination programs (if applicable): : Not applicable PATIENT: DAVON RODRÍGUEZ ENCOUNTER: [id number] MEDICAL RECORD#: [id number] ADMISSION DATE: 05/06/2021 DISCHARGE DATE: 05/09/2021 ATTENDING MD: DILIP VU : AGE: 55 MARITAL STATUS: D DC PLAN ID: [id number] FACILITY: [facility] PRINTED ON: 05/09/21 18:47 CT All edits/amendments must be made on the electronic document DICTATION DATE: 05/09/211846 CYTOLOGY TECHNOLOGIST: EMMY 05/09/211846 RPT#: [id number] DC DATE:05/09/21 STATUS: DIS IN [id number] [place] [address] END OF REPORT
== END 2021-05-09 13:33 | disposition home or self-care (01) | DRG 177 ==
LOC: D.ER 13:00 → D.EDHOLD 18:16 → D.M2 18:16
PROVIDERS: Family Medicine; Internal Medicine Pulmonary Disease; ADMIT Family Medicine; ATTEND Family Medicine
DX: U07.1 COVID-19 (principal); J12.82 Pneumonia due to coronavirus disease 2019; I10 Essential (primary) hypertension; I95.9 Hypotension, unspecified; D70.9 Neutropenia, unspecified